=== PATIENT | male | born 1955 | race Caucasian/White ===

== ENCOUNTER 2017-08-12 17:06 | Inpatient (IN) | payer OTHER ==
[~2017-08-12] VITALS: Ht 185.4 cm; Wt 99.1 kg
[~2017-08-12 17:06] MED LIST: ASPI81TA82 PO; LISI-587 PO; RANI150 PO
[2017-08-12 17:07] VITALS: BP 153/98; PULSE 98; RESP 18; TEMP 98.8; O2SAT 100
[2017-08-12] MEDS ORDERED: SODIUM CHLORIDE 0.9% FLUSH 10 ML FLUSH IV FLUSH PRN (17:30)
[2017-08-12] MEDS ORDERED: LORazepam 2 MG/ML VIAL ONE (17:39)
[2017-08-12 17:44] VITALS: BP 157/97; PULSE 87; RESP 14; O2SAT 96
[2017-08-12] MEDS ORDERED: SODIUM CHLOR 0.9% 1000 ML INJ 1,000 ML IV SCH (17:45)
[2017-08-12] MEDS ORDERED: THIAMINE INJ 100 MG in SODIUM CHLORIDE 0.9% INJ 100 ML IV ONE (17:45)
[2017-08-12] MEDS ORDERED: LORazepam 2 MG/ML VIAL IV PUSH ONE ×2 (17:45→18:45)
[2017-08-12 17:49] LABS: AUTOMATED NEUTROPHIL # 3.2 TH/MM3 (1.8-7.7); BASOPHIL % 0.4 % (0.0-2.0); EOSINOPHIL % 0.4 % (0.0-4.0); HEMATOCRIT 43.4 % (39.0-51.0); LYMPH % 33.3 % (9.0-44.0); LYMPHOCYTE # 1.9 TH/MM3 (1.0-4.8); MEAN CELL VOLUME 92.9 FL (80.0-100.0); MEAN CORPUSCULAR HGB CONC 34.5 % (32.0-36.0); MEAN PLATELET VOLUME 8.4 FL (7.0-11.0); MONO % 11.3 % (0.0-8.0); MONOCYTE # 0.7 TH/MM3 (0-0.9); NEUT % 54.6 % (16.0-70.0); PLATELET COUNT 230 TH/MM3 (150-450); RED BLOOD COUNT 4.67 MIL/MM3 (4.50-5.90); WHITE BLOOD COUNT 5.8 TH/MM3 (4.0-11.0)
[2017-08-12 17:57] LABS: INTERNATIONAL NORMALIZED RATIO 1.2 RATIO
[2017-08-12] MEDS ORDERED: LORazepam 1 MG TAB PO PRN (18:00)
[2017-08-12] MEDS ORDERED: FLUMAZENIL 0.5 MG/5 ML VIAL IV PUSH PRN (18:00)
[2017-08-12] MEDS ORDERED: LORazepam 2 MG TAB PO PRN (18:00)
[2017-08-12] MEDS ORDERED: LORazepam 2 MG/ML VIAL IV PUSH PRN ×4 (18:00)
[2017-08-12] MEDS ORDERED: LISI20TA3 PO (18:03)
[2017-08-12] MEDS ORDERED: ASPI-516 CHEW (18:03)
[2017-08-12] MEDS ORDERED: ZANT150T2 PO (18:03)
--- NOTE | 2017-08-12 18:03 | RADRPT ---
EXAM DATE/TIME: 08/12/2017 17:51 [facility] COMPARISON: No previous studies available for comparison. INDICATIONS : Altered mental status. RADIATION DOSE: 44.20 CTDIvol (mGy) MEDICAL HISTORY : Hypertension. SURGICAL HISTORY : Tonsillectomy. Appendectomy. ENCOUNTER: Initial ACUITY: 1 day PAIN SCALE: 0/10 LOCATION: cranial TECHNIQUE: Multiple contiguous axial images were obtained of the head. Using automated exposure control and adj ustment of the mA and/or kV according to patient size, radiation dose was kept as low as reasonably a chievable to obtain optimal diagnostic quality images. DICOM format image data is available electro nically for review and comparison. FINDINGS: CEREBRUM: There is subtle loss of waldrop-white differentiation in the right frontal region. The ventricles are no rmal for age. No evidence of midline shift, mass lesion, or hemorrhage. No extra-axial fluid collect ions are seen. POSTERIOR FOSSA: The cerebellum and brainstem are intact. The 4th ventricle is midline. The cerebellopontine angle i s unremarkable. EXTRACRANIAL: The visualized portion of the orbits is intact. SKULL: The calvaria is intact. No evidence of skull fracture. CONCLUSION: Loss of waldrop matter-white matter differentiation in the right frontal region indicati ng possible acute infarct. No evidence of hemorrhage. Everett Valentine MD on August 12, 2017 at 17:58 Board Certified Radiologist. This report was verified electronically.
[2017-08-12 18:13] LABS: ALBUMIN 4.2 GM/DL (3.4-5.0); ALT (GPT) 56 U/L (12-78); AST (GOT) 39 U/L (15-37); BICARBONATE 21.7 MEQ/L (21.0-32.0); BLOOD UREA NITROGEN 12 MG/DL (7-18); CALCIUM 8.7 MG/DL (8.5-10.1); CHLORIDE 106 MEQ/L (98-107); CREATININE 0.95 MG/DL (0.60-1.30); GLOMERULAR FILTRATION RATE 80 ML/MIN (>89); GLUCOSE,RANDOM 97 MG/DL (74-106); SODIUM (NA) 138 MEQ/L (136-145)
[2017-08-12 18:18] LABS: ALKALINE PHOSPHATASE 70 U/L (45-117); TOTAL BILIRUBIN ADULT 0.6 MG/DL (0.2-1.0); TOTAL PROTEIN 8.1 GM/DL (6.4-8.2); TROPONIN I LESS THAN 0.02 NG/ML (0.02-0.05)
--- NOTE | 2017-08-12 18:23 | PD ---
HPI Chief Complaint: Seizure Time Seen by Provider: 17:41 Travel History International Travel<30 days: No Contact w/Intl Traveler<30days: No Traveled to known affect area: No History of Present Illness HPI 61-year-old male was brought in by friends by private vehicle for seizures. Patient has history of drinking alcohol regularly. Patient states that last drink with this morning. Patient states that he has frequent aura since July 09. Patient states that he was hospitalized last month for seizure in [place].. Patient denies any illicit drug abuse. Patient states that he has not slept for the past 56 hours. Patient states that he had 5 episodes of aura typical of preseizure symptoms today. Patient states that the seizure was generalized tonic-clonic seizure. Patient denies any urinary or bowel incontinence associate with the seizure episode. Patient is on Xanax as needed for the aura. Patient also was given prescription for Seroquel 25 mg nightly for the past month to help him to sleep. Patient was seen by personal physician recently Dr. Herr. patient has elevated liver enzymes recently. Patient denies any history hypertension, diabetes, hyperlipidemia. Patient is a non- smoker. Patient was on a lot of mental stress recently from a broken up relationship. PFSH Past Medical History Cardiovascular Problems: Yes High Cholesterol: Yes Diminished Hearing: No Hypertension: Yes Immunizations Current: No (YES, PNEUMONIA/ NO FLU) Past Surgical History Abdominal Surgery: Yes Appendectomy: Yes Tonsillectomy: Yes (T/A) Other Surgery: Yes (TONSILLECTOMY, APPENDECTOMY) Social History Alcohol Use: Yes (SOCIALLY) Tobacco Use: No Substance Use: No Allergies-Medications (Allergen,Severity, Reaction): Coded Allergies: melon (Unverified Allergy, Severe, Swelling, 08/12/17) Uncoded Allergies: NSAIDS (Allergy, Severe, 07/10/14) Patient states that he had a reaction to naproxen 20 years ago, but has had no reaction since. TUMARIC (Allergy, Severe, Anaphylaxis, 09/13/14) Reported Meds & Prescriptions Reported Meds & Active Scripts Active Reported Ambien (Zolpidem Tartrate) 10 Mg Tab 10 Mg PO HS PRN Xanax (Alprazolam) 0.25 Mg Tab 0.25 Mg PO DAILY PRN Quetiapine (Quetiapine Fumarate) 25 Mg Tab 25 Mg PO DAILY Lipitor (Atorvastatin Calcium) 40 Mg Tab 40 Mg PO HS Hydrochlorothiazide 25 Mg Tab 25 Mg PO DAILY Lisinopril 20 Mg Tab 20 Mg PO DAILY Aspirin 81 Mg Chew 81 Mg CHEW DAILY Review of Systems General / Constitutional: No: Fever Eyes: No: Visual changes HENT: No: Headaches Cardiovascular: No: Chest Pain or Discomfort Respiratory: No: Shortness of Breath Gastrointestinal: No: Abdominal Pain Genitourinary: No: Dysuria Musculoskeletal: No: Pain Skin: No Rash Neurologic: No: Weakness Psychiatric: No: Depression Endocrine: No: Polydipsia Hematologic/Lymphatic: No: Easy Bruising Physical Exam Narrative GENERAL: Well-nourished, well-developed patient. SKIN: Focused skin assessment warm/dry. HEAD: Normocephalic. EYES: No scleral icterus. No injection or drainage. NECK: Supple, trachea midline. No JVD or lymphadenopathy. CARDIOVASCULAR: Regular rate and rhythm without murmurs, gallops, or rubs. RESPIRATORY: Breath sounds equal bilaterally. No accessory muscle use. GASTROINTESTINAL: Abdomen soft, non-tender, nondistended. MUSCULOSKELETAL: No cyanosis, or edema. BACK: Nontender without obvious deformity. No CVA tenderness. Neurologic exam: Patient seems to be manic at this point. Patient moves all extremity well. No obvious focal neurological deficit. Data Data Last Documented VS Vital Signs Date Time Temp Pulse Resp B/P (MAP) Pulse Ox O2 Delivery O2 Flow Rate FiO2 08/12/17 17:44 87 14 157/97 (117) 96 Room Air 08/12/17 17:07 98.8 Orders Orders Electrocardiogram (08/12/17 17:21) Ammonia (08/12/17 17:21) Complete Blood Count With Diff (08/12/17 17:21) Comprehensive Metabolic Panel (08/12/17 17:21) Prothrombin Time / Inr (Pt) (08/12/17 17:21) Act Partial Throm Time (Ptt) (08/12/17 17:21) Troponin I (08/12/17 17:21) Ct Brain W/O Iv Contrast(Rout) (08/12/17 17:21) Blood Glucose (08/12/17 17:21) Ecg Monitoring (08/12/17 17:21) Iv Access Insert/Monitor (08/12/17 17:21) Oximetry (08/12/17 17:21) Sodium Chloride 0.9% Flush (Ns Flush) (08/12/17 17:30) Lorazepam Inj (Ativan Inj) (08/12/17 17:39) Lorazepam Inj (Ativan Inj) (08/12/17 17:45) Sodium Chlor 0.9% 1000 Ml Inj (Ns 1000 M (08/12/17 17:45) Thiamine Inj (Thiamine Inj) (08/12/17 17:45) Mra Brain W/O Contrast (Cow) (08/12/17 17:45) Mra Carotids W Contrast (08/12/17 17:45) Eeg Study (08/12/17 ) Alcohol Withdrawal Asmt-Ciwa ONCE (08/12/17 17:56) Flumazenil Inj (Romazicon Inj) (08/12/17 18:00) Lorazepam Inj (Ativan Inj) (08/12/17 18:00) Lorazepam (Ativan) (08/12/17 18:00) Lorazepam Inj (Ativan Inj) (08/12/17 18:00) Lorazepam Inj (Ativan Inj) (08/12/17 18:00) Lorazepam Inj (Ativan Inj) (08/12/17 18:00) Lorazepam (Ativan) (08/12/17 18:00) Mri Brain W&W/O Contrast (08/12/17 17:42) Admit Order (Ed Use Only) (08/12/17 18:23) Lorazepam Inj (Ativan Inj) (08/12/17 18:45) Alcohol (Ethanol) (08/12/17 17:30) Labs Laboratory Tests Test 08/12/17 17:30 White Blood Count 5.8 TH/MM3 Red Blood Count 4.67 MIL/MM3 Hemoglobin 15.0 GM/DL Hematocrit 43.4 % Mean Corpuscular Volume 92.9 FL Mean Corpuscular Hemoglobin 32.0 PG Mean Corpuscular Hemoglobin Concent 34.5 % Red Cell Distribution Width 13.0 % Platelet Count 230 TH/MM3 Mean Platelet Volume 8.4 FL Neutrophils (%) (Auto) 54.6 % Lymphocytes (%) (Auto) 33.3 % Monocytes (%) (Auto) 11.3 % Eosinophils (%) (Auto) 0.4 % Basophils (%) (Auto) 0.4 % Neutrophils # (Auto) 3.2 TH/MM3 Lymphocytes # (Auto) 1.9 TH/MM3 Monocytes # (Auto) 0.7 TH/MM3 Eosinophils # (Auto) 0.0 TH/MM3 Basophils # (Auto) 0.0 TH/MM3 CBC Comment DIFF FINAL Differential Comment Prothrombin Time 12.0 SEC Prothromb Time International Ratio 1.2 RATIO Activated Partial Thromboplast Time 23.8 SEC Blood Urea Nitrogen 12 MG/DL Creatinine 0.95 MG/DL Random Glucose 97 MG/DL Total Protein 8.1 GM/DL Albumin 4.2 GM/DL Calcium Level 8.7 MG/DL Alkaline Phosphatase 70 U/L Aspartate Amino Transf (AST/SGOT) 39 U/L Alanine Aminotransferase (ALT/SGPT) 56 U/L Total Bilirubin 0.6 MG/DL Sodium Level 138 MEQ/L Potassium Level 3.8 MEQ/L Chloride Level 106 MEQ/L Carbon Dioxide Level 21.7 MEQ/L Anion Gap 10 MEQ/L Estimat Glomerular Filtration Rate 80 ML/MIN Ammonia 23 MCMOL/L Troponin I LESS THAN 0.02 NG/ML Ethyl Alcohol Level 91 MG/DL [facility] Medical Decision Making Medical Screen Exam Complete: Yes Emergency Medical Condition: Yes Interpretation(s) 1945 PM. CBC within normal limits. CMP within normal limits. AST 39. Cardiac enzymes are normal. Ammonia 23. INR 1.2. Differential Diagnosis Differential diagnosis including alcohol withdrawal, hepatic encephalopathy, manic episode, seizure, TIA, CVA, electrolyte imbalance. Narrative Course 61-year-old male anxious, manic, history of alcohol consumption. Patient states that he has aura for the past month and 5 today. Last drink was this morning. Ativan 2 mg IV. CIWA protocol started. Thiamine 100 mg IV. Normal saline solution 125 cc an hour. Neurology consultation initiated. MRI, MRA and EEG ordered. Diagnosis Primary Impression: Seizure Additional Impression: Alcohol dependence Qualified Codes: F10.29 - Alcohol dependence with unspecified alcohol-induced disorder Admitting Information Admitting Physician Requests: Admit Darius Johns MD August 12, 2017 18:23
--- NOTE | 2017-08-12 19:18 | HHI.HP ---
HPI Service [facility] Hospitalists Primary Care Physician Jalen Herr MD Admission Diagnosis Seizure. Alcohol dependence. Chief Complaint: confusion. 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 Pt had been displaying a pressured speech and agitated behavior. Pt says he thinks that a recent break up from his girlfriend of 7 years on "June 25" is believed to be the trigger for his behavior. He was being seen by [facility] psychiatry and given a script for seroquel to help with sleep. Pt says he does drink "2 etoh" drinks on average per day but wouldn't be more specific ...other than to say he had 3 vodka's today. Pt says he was hospitalized in [facility] and had w/up and told he had seizure and it was probably etoh related. Pt has been in [place] visiting family per his hx tonight. Says "3 nights ago" he was in ED at [facility] in [place] and had to see about 5 levels of trainee doctors before seeing the Attending. He believes he had "5 auras today" which he thinks are sz activity. He drank 3 vodkas and got on a plane to [facility] where his friends and colleagues picked him up and brought him here. Apparently he was using some as needed xanax for his symptoms. He has had elevated liver enzymes with most recent LFT's being drawn on 07/18 which I reviewed. A liver bx in 2014 showed fatty liver and some central/portal fibrosis. He has been given multiple doses of ativan in ED already. Also of note we are informed that he may drink at least 6-8 etoh beverages per day. Review of Systems Other confusion and possible sz Past Family Social History Past Medical History htn dupuytren contracture bcc nose. radiation carpal tunnel fatty liver 2015 liver bx. steatohepatitis/portal and central fibrosis hyperlipidemia OA hx basal cell ca skin sleep d/o hx appe. Meckel diverticulum repair tonsil/adenoid recent blood work 07/18/17 psa 0.1, tsh 4.7, protein 7.3, albumen 4.5, t bili 0.8, alk phos 68, ast 308, alt 173 LDL 49, HDL 41, triglycerides 83, wbc 4.6 , hgb 14,platelets 301, na 138,bun 18, cr .9 ca 9.5 Reported Medications asa 81mg daily fish oil 1200mg dialy hctz 25mg daily lisinipril 20mg daily per pt. bid per records mag 500mg daily lipitor 40mg daily quetiapine fumarate 25mg daily Allergies: Coded Allergies: melon (Unverified Allergy, Severe, Swelling, 08/12/17) Uncoded Allergies: NSAIDS (Allergy, Severe, 07/10/14) Patient states that he had a reaction to naproxen 20 years ago, but has had no reaction since. TUMARIC (Allergy, Severe, Anaphylaxis, 09/13/14) Family History pt keeps pointing out bipolar d/o Social History no tob admits to at least "2 etoh drinks per day" says today he had 3 vodka drinks. Physical Exam Vital Signs pressured/manic speech heart reg. no murmer lung cta abd s/nt/bs/nd ext no edema no carotid bruit no asterixis no nuchal rigidity Vital Signs Date Time Temp Pulse Resp B/P (MAP) Pulse Ox O2 Delivery O2 Flow Rate FiO2 08/12/17 17:44 87 14 157/97 (117) 96 Room Air 08/12/17 17:44 96 Room Air 08/12/17 17:07 98.8 98 18 153/98 (116) 100 Laboratory Laboratory Tests Test 08/12/17 17:30 White Blood Count 5.8 Red Blood Count 4.67 Hemoglobin 15.0 Hematocrit 43.4 Mean Corpuscular Volume 92.9 Mean Corpuscular Hemoglobin 32.0 Mean Corpuscular Hemoglobin Concent 34.5 Red Cell Distribution Width 13.0 Platelet Count 230 Mean Platelet Volume 8.4 Neutrophils (%) (Auto) 54.6 Lymphocytes (%) (Auto) 33.3 Monocytes (%) (Auto) 11.3 Eosinophils (%) (Auto) 0.4 Basophils (%) (Auto) 0.4 Neutrophils # (Auto) 3.2 Lymphocytes # (Auto) 1.9 Monocytes # (Auto) 0.7 Eosinophils # (Auto) 0.0 Basophils # (Auto) 0.0 CBC Comment DIFF FINAL Differential Comment Prothrombin Time 12.0 Prothromb Time International Ratio 1.2 Activated Partial Thromboplast Time 23.8 Blood Urea Nitrogen 12 Creatinine 0.95 Random Glucose 97 Total Protein 8.1 Albumin 4.2 Calcium Level 8.7 Alkaline Phosphatase 70 Aspartate Amino Transf (AST/SGOT) 39 Alanine Aminotransferase (ALT/SGPT) 56 Total Bilirubin 0.6 Sodium Level 138 Potassium Level 3.8 Chloride Level 106 Carbon Dioxide Level 21.7 Anion Gap 10 Estimat Glomerular Filtration Rate 80 Ammonia 23 Troponin I LESS THAN 0.02 Result Diagram: 08/12/17172908/12/171729 Caprini VTE Risk Assessment Caprini VTE Risk Assessment: Mod/High Risk (score >= 2) Caprini Risk Assessment Model Point Value = 1 Point Value = 2 Point Value = 3 Point Value = 5 Age 41-60 Minor surgery BMI > 25 kg/m2 Swollen legs Varicose veins or History of unexplained or recurrent spontaneous Oral contraceptives or hormone replacement Sepsis (< 1 month) Serious lung disease, including pneumonia (< 1 month) Abnormal pulmonary function Acute myocardial infarction Congestive heart failure (< 1 month) History of inflammatory bowel disease Medical patient at bed rest Age 61-74 Arthroscopic surgery Major open surgery (> 45 min) Laparoscopic surgery (> 45 min) Malignancy Confined to bed (> 72 hours) Immobilizing plaster cast Central venous access Age >= 75 History of VTE Family history of VTE Factor V Leiden Prothrombin [id number] Lupus anticoagulant Anticardiolipin antibodies Elevated serum homocysteine Heparin-induced thrombocytopenia Other congenital or acquired thrombophilia Stroke (< 1 month) Elective arthroplasty Hip, pelvis, or leg fracture Acute spinal cord injury (< 1 month) Prophylaxis Regimen Total Risk Factor Score Risk Level Prophylaxis Regimen 0-1 Low Early ambulation 2 Moderate Order ONE of the following: *Sequential Compression Device (SCD) *Heparin 5000 units SQ BID 3-4 Higher Order ONE of the following medications: *Heparin 5000 units SQ TID *Enoxaparin/Lovenox 40 mg SQ daily (WT < 150 kg, CrCl > 30 mL/min) *Enoxaparin/Lovenox 30 mg SQ daily (WT < 150 kg, CrCl > 10-29 mL/min) *Enoxaparin/Lovenox 30 mg SQ BID (WT < 150 kg, CrCl > 30 mL/min) AND/OR *Sequential Compression Device (SCD) 5 or more Highest Order ONE of the following medications: *Heparin 5000 units SQ TID (Preferred with Epidurals) *Enoxaparin/Lovenox 40 mg SQ daily (WT < 150 kg, CrCl > 30 mL/min) *Enoxaparin/Lovenox 30 mg SQ daily (WT < 150 kg, CrCl > 10-29 mL/min) *Enoxaparin/Lovenox 30 mg SQ BID (WT < 150 kg, CrCl > 30 mL/min) AND *Sequential Compression Device (SCD) Assessment and Plan Problem List: (1) Alcohol dependence ICD Codes: F10.20 - Alcohol dependence, uncomplicated Status: Acute Plan: 1. Pt brought to ED with severe agitation, pressured speech, flight of ideas, no sleep in 56 hrs and certainly might be experiencing rochelle. He was from his significant other on June 25 which seems to have precipitated his mood d/o. He suffers from etoh dependence and may have had etoh related seizures in the past and possibly earlier today. Pt just flew in from [place] to [facility] and brought to ED by friends. Pt admits to [address] here. he will only admit to 2 etoh drinks on average per day but sources close to him say it could be more like 6-8drinks at least. Pt currently has etoh in his system and is not currenty in etoh w/d and I see no evidence for hepatic encephalopathy. His current sx's seem to be related to his mood d/o, but he is at significant risk for a severe etoh withdrawal while admitted. There is no proof of infection, metabolic d/o, acute cva on basic labwork, ct brain, mri/a brain. he is already given iv ativan in ED. We will admit him to ICU setting for close monitoring and etoh w/d I spoke to Dr Oconnor neurology who will get EEG in AM. IV thiamine and IVF initiated CIWA etoh w/d protocol started. Have ordered schedule long acting benzo librium to prevent etoh w/d prn clonidine for bp ordered Will discuss the situation with his psychiatrist in the morning. Pt was on a low dose seroquel. dvt prophylaxis. Physician Certification 2 Midnight Certification Type: Admission for Inpatient Services Order for Inpatient Services 3The services are ordered in accordance with Medicare regulations or non- Medicare payer requirements, as applicable. In the case of services not specified as inpatient-only, they are appropriately provided as inpatient services in accordance with the 2-midnight benchmark. Estimated LOS (days): 3 3 days is the estimated time the patient will need to remain in the hospital, assuming treatment plan goals are met and no additional complications. Post-Hospital Plan: Home Problem Qualifiers (1) Alcohol dependence: Qualified Codes: F10.29 - Alcohol dependence with unspecified alcohol-induced disorder Steven Torres MD August 12, 2017 19:18
[2017-08-12] MEDS ORDERED: GADODIAMIDE PF 287 MG/ML 20 ML VIAL (for RAD MRI) IVCONTRAST ONE (19:22)
[2017-08-12 19:40] VITALS: BP 117/67; PULSE 69; RESP 20; O2SAT 95
[2017-08-12] MEDS ORDERED: HYDR25TA5 PO (19:42)
[2017-08-12] MEDS ORDERED: AMBI10TA PO (19:42)
[2017-08-12] MEDS ORDERED: LISI-515 PO (19:42)
[2017-08-12] MEDS ORDERED: LIPI40TA PO (19:42)
[2017-08-12] MEDS ORDERED: ALPR.25 PO (19:42)
[2017-08-12] MEDS ORDERED: QUET1TAB7 PO (19:42)
[2017-08-12] MEDS ORDERED: cloNIDine HCL 0.1 MG TAB PO PRN (19:45)
--- NOTE | 2017-08-12 19:53 | RADRPT ---
EXAM DATE/TIME: 08/12/2017 18:00 [place] Corrected on: August 13, 2017; [facility] COMPARISON: CT BRAIN W/O CONTRAST, August 12, 2017, 17:51. INDICATIONS : Seizures. CONTRAST: 20 cc Omniscan (gadodiamide) IV MEDICAL HISTORY : Carcinoma, basal cell. Hypertension. Hypercholesterolemia. SURGICAL HISTORY : Tonsillectomy. Appendectomy. ENCOUNTER: Initial ACUITY: 1 day PAIN SCORE: 0/10 LOCATION: cranial TECHNIQUE: Multiplanar, multisequence MRI of the brain was performed both prior to and following the administrat ion of paramagnetic contrast. FINDINGS: CEREBRUM: The ventricles are normal for age. No evidence of midline shift, mass lesion, hemorrhage or acute in farction. No extraaxial fluid collections are seen. The pituitary gland and suprasellar cistern are normal in configuration. WHITE MATTER: Very minimal scattered periventricular and subcortical white matter small vessel ischemic changes are noted. POSTERIOR FOSSA: The cerebellum and brainstem are intact. The 4th ventricle is midline. The cerebellopontine angle is unremarkable. The cerebellar tonsils are normal in position. DIFFUSION IMAGING: No focal areas of restricted diffusion are seen. No evidence of acute infarction. EXTRACRANIAL: The visualized portions of the orbits and paranasal sinuses are unremarkable. POST-CONTRAST: No abnormal areas of parenchymal or dural enhancement. No evidence of blood-brain barrier breakdown. CONCLUSION: 1. Very minimal scattered periventricular and subcortical white matter small vessel ischemic changes. 2. No acute infarct or acute hemorrhage, midline shift, extra-axial fluid collection or abnormal enha ncing mass lesion. Eliezer Navarro MD on August 12, 2017 at 19:47 on August 13, 2017 at 10:31 Board Certified Radiologist. This report was verified electronically.
--- NOTE | 2017-08-12 19:56 | RADRPT ---
EXAM DATE/TIME: 08/12/2017 18:00 [facility] COMPARISON: No previous studies available for comparison. INDICATIONS : Seizures. MEDICAL HISTORY : Carcinoma, basal cell. Hypertension. Hypertension. SURGICAL HISTORY : Tonsillectomy. Appendectomy. ENCOUNTER: Initial ACUITY: 1 day PAIN SCORE: 0/10 LOCATION: cranial Please note a normal MRA of the brain does not entirely exclude the possibility of a small aneurysm, nor the possibility of distal intracranial vessel disease. TECHNIQUE: 3D time of flight MRA was performed. Source images, multiplanar STS MIP, and 3D volume MIP reconstru ctions were reviewed. FINDINGS: There is excellent visualization of the major intracranial arteries out to the second-order branch ve ssels. There is no evidence for aneurysm, vessel truncation or stenosis, and no evidence for vascula r malformation. There are patent bilateral posterior communicating arteries. CONCLUSION: 1. Patent bilateral posterior communicating arteries. 2. No significant stenosis, occlusion or aneurysm formation. Eliezer Navarro MD on August 12, 2017 at 19:53 Board Certified Radiologist. This report was verified electronically.
--- NOTE | 2017-08-12 20:01 | RADRPT ---
EXAM DATE/TIME: 08/12/2017 18:00 [facility] COMPARISON: No previous studies available for comparison. INDICATIONS : Seizures. CONTRAST: 20 cc Omniscan (gadodiamide) IV MEDICAL HISTORY : Carcinoma, basal cell. Hypertension. Hypercholesterolemia. SURGICAL HISTORY : Tonsillectomy. Appendectomy. ENCOUNTER: Initial ACUITY: 1 day PAIN SCORE: 0/10 LOCATION: cranial Percent stenosis is calculated using the diameter of the stenotic region over the diameter of the nor mal distal internal carotid artery. TECHNIQUE: Bolus infused MRA of the extracranial circulation was performed using a neurovascular coil. Post pro cessing was performed including rotating subvolume maximum intensity projections of each carotid vivek ry, rotating full volume maximum intensity projections of both carotid arteries, sagittal and coronal sliding thin slab reformations of each carotid artery, and left oblique sliding thin slab reformatio n through the aortic arch to include the origin of the arch branch vessels. FINDINGS: AORTIC ARCH: The great vessels are patent at their origins. No evidence of ostial narrowing. RIGHT CAROTID: The common carotid artery is intact. The carotid bulb has a normal configuration without ulceration or narrowing. Minimal focal stenosis is noted involving the right proximal internal carotid artery. M oderate focal stenosis is noted involving the right external carotid artery. LEFT CAROTID: The common carotid artery is intact. The carotid bulb has a normal configuration without ulceration or narrowing. The internal carotid artery lumen is smooth without stenosis. The external carotid ar jesenia is intact. VERTEBRALS: The vertebral arteries have a symmetric diameter. No stenotic lesions are seen. CONCLUSION: 1. Minimal focal stenosis involving the right proximal internal carotid artery. 2. Moderate focal stenosis involving the right proximal external carotid artery. 3. No significant stenosis or occlusion of the left carotid system. Eliezer Navarro MD on August 12, 2017 at 19:54 Board Certified Radiologist. This report was verified electronically.
[2017-08-12 20:22] LABS: BILIRUBIN, URINE NEG (NEG); BLOOD, URINE NEG (NEG); GLUCOSE,URINE NEG (NEG); KETONE, URINE NEG (NEG); NITRITE,URINE NEG (NEG); PH, URINE 6.5 (5.0-8.5); URINE COLOR LIGHT-YELLOW (YELLW/STRAW); URINE LEUKOCYTE ESTERASE NEG (NEG)
[2017-08-12] MEDS: levETIRAcetam 500 MG TAB PO SCH (22:12)
[2017-08-12] MEDS: ATORVASTATIN 40 MG TAB PO SCH (22:13)
[2017-08-12] MEDS: SODIUM CHLOR 0.9% 1000 ML INJ 1,000 ML IV SCH (22:14)
[2017-08-13] VITALS (12 sets, daily range): BP systolic 118–156; BP diastolic 48–102; PULSE 7–83; RESP 16–27; TEMP 97.7–98.9; O2SAT 97–98
[2017-08-13] MEDS ORDERED: chlordiazePOXIDE 25 MG CAP PO SCH
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
[2017-08-13] MEDS: chlordiazePOXIDE 25 MG CAP PO SCH ×3 (05:36→17:46)
[2017-08-13] MEDS: ASPIRIN 81 MG CHEW TAB CHEW SCH (08:31)
[2017-08-13] MEDS: levETIRAcetam 500 MG TAB PO SCH ×2 (08:31→20:19)
[2017-08-13] MEDS: LISINOPRIL 20 MG TAB PO SCH (08:31)
[2017-08-13] MEDS: MULTIVITAMIN TAB PO SCH (08:31)
[2017-08-13] MEDS ORDERED: HYDROCHLOROTHIAZIDE 25 MG TAB PO SCH (09:00)
[2017-08-13] MEDS: SODIUM CHLOR 0.9% 1000 ML INJ 1,000 ML IV SCH ×2 (09:27→22:55)
[2017-08-13] MEDS: THIAMINE INJ 100 MG in SODIUM CHLORIDE 0.9% INJ 100 ML IV SCH (09:27)
--- NOTE | 2017-08-13 10:31 | HHI.PR ---
Subjective Remarks Pt very verbose. Difficult to interrupt. Pt pleasant but grandiose at times. Objective Vitals Vital Signs Date Time Temp Pulse Resp B/P (MAP) Pulse Ox O2 Delivery O2 Flow Rate FiO2 08/13/17 10:00 83 08/13/17 08:00 97.7 63 27 152/48 (82) 98 08/13/17 08:00 63 08/13/17 07:00 Room Air 99 08/13/17 06:00 Room Air 99 08/13/17 06:00 66 08/13/17 05:00 98.9 60 22 138/91 (107) 98 08/13/17 04:56 08/13/17 03:23 67 16 118/65 (82) 97 Room Air 08/12/17 19:40 69 20 117/67 (84) 95 Room Air 08/12/17 17:44 87 14 157/97 (117) 96 Room Air 08/12/17 17:44 96 Room Air 08/12/17 17:07 98.8 98 18 153/98 (116) 100 Result Diagram: 08/12/17172908/12/171729 Imaging Last Impressions Neck Magnetic Resonance Angiography 08/12/171744 Signed Impressions: Service Date/Time: Saturday, August 12, 2017 18:00 - CONCLUSION: 1. Minimal focal stenosis involving the right proximal internal carotid artery. 2. Moderate focal stenosis involving the right proximal external carotid artery. 3. No significant stenosis or occlusion of the left carotid system. Eliezer Navarro MD Head Magnetic Resonance Angiography 08/12/171744 Signed Impressions: Service Date/Time: Saturday, August 12, 2017 18:00 - CONCLUSION: 1. Patent bilateral posterior communicating arteries. 2. No significant stenosis, occlusion or aneurysm formation. Eliezer Navarro MD Brain MRI 08/12/17 174 Signed Impressions: Service Date/Time: Saturday, August 12, 2017 18:00 - CONCLUSION: 1. Very minimal scattered periventricular and subcortical white matter small vessel ischemic changes. 2. No acute infarct or acute hemorrhage, midline shift, extra-axial fluid collection or abnormal enhancing mass lesion. Eliezer Navarro MD Head CT 08/12/17 1721 Signed Impressions: Service Date/Time: Saturday, August 12, 2017 17:51 - CONCLUSION: Loss of waldrop matter-white matter differentiation in the right frontal region indicating possible acute infarct. No evidence of hemorrhage. Everett Valentine MD Objective Remarks GENERAL: This is a well-nourished, well-developed patient, in no apparent distress. CARDIOVASCULAR: Regular rate and rhythm without murmurs, gallops, or rubs. RESPIRATORY: Clear to auscultation. Breath sounds equal bilaterally. No wheezes , rales, or rhonchi. GASTROINTESTINAL: Abdomen soft, non-tender, nondistended. Normal active bowel sounds MUSCULOSKELETAL: Extremities without clubbing, cyanosis, or edema. NEURO: Alert & Oriented x4 to person, place, time, situation. Moves all ext x4 A/P Problem List: (1) Alcohol dependence ICD Codes: F10.20 - Alcohol dependence, uncomplicated Status: Acute Plan: - Pt brought to ED with severe agitation, pressured speech, flight of ideas, no sleep in 56 hrs and certainly might be experiencing rochelle. - Pt was from his significant other on June 25 which seems to have precipitated his mood d/o. - Pt suffers from etoh dependence and may have had etoh related seizures in the past and possibly the day prior to admission. - Pt flew in from [place] to [facility] and brought to ED by friends. Pt admits to [address] here[address] - Pt will only admit to 2 etoh drinks on average per day but sources close to him say it could be more like 6-8drinks at least. - Pt currently has etoh in his system and is not currenty in etoh w/d and I see no evidence for hepatic encephalopathy. His current sx's seem to be related to his mood d/o, but he is at significant - MRI brain (08/13/17) --> No acute findings - MRA brain (08/13/17) --> NO acute findings - MRA neck (08/13/17) --> no hemodynamically significant stenosis - EEG (08/13/17) --> NO seizure activity - TSH, B12 --> WNL - RPR --> Non-reactive - Pt likely has both etoh dependence and Bipolar Disorder. Currently manic. - Case reviewed with pt's outpatient Psychiatrist, Dr. Gautam (08/14/17) - Case reviewed with Neurology, Dr. Oconnor, (08/14/17). - continue scheduled librium - ativan per [facility] protocol - thiamin, folate, MVI - DVT prophylaxis - supportive care Problem Qualifiers (1) Alcohol dependence: Qualified Codes: F10.29 - Alcohol dependence with unspecified alcohol-induced disorder Tito Dunn DO August 13, 2017 10:31
--- NOTE | 2017-08-13 10:34 | EKG ---
Date Performed: 08/12/2017 Time Performed: 17:44:39 PTAGE: 61 years EKG: Sinus rhythm NORMAL ECG NO PREVIOUS TRACING DOCTOR: Dick Youssef Interpretating Date/Time 08/13/2017 10:32:12
--- NOTE | 2017-08-13 11:12 | MG ---
cc: Sonam Stanley MD EEG NUMBER: [id number] REFERRING PHYSICIAN: Dr. Oconnor. Room 1325 with hyperventilation, photic stimulation. Good ventilatory effort. EEG is done awake, drowsy and sleep. Admitted for possible seizure, possible alcohol withdrawal. Last ETOH level of 91. Some frequent auras since July. Not slept in 56 hours and had a generalized tonic-clonic seizure. He has a known history of hyperlipidemia, hypertension, head trauma, elevated liver enzymes, ethanol use. Currently on aspirin, lisinopril, thiamine, Theragran, vitamins. DESCRIPTION OF RECORD: The patient exhibits an alpha rhythm of 10-1/2 to 11, 20-50 microvolts. Overall, symmetrical background. Some minor myogenic artifact noted. Photic stimulation is done at the beginning within normal driving response. Hyperventilation performed towards the end of the recording with some myogenic artifact, but overall symmetrical background. Tends to fall asleep. There is some snoring artifact noted. No epileptiform features noted. IMPRESSION: Overall, normal appearing EEG without any epileptiform features. Clinical correlation. Sonam Stanley MD DF/TL , 10:58 AM , 11:11 AM
--- NOTE | 2017-08-13 16:55 | PD.PSY.CON ---
Provisional Diagnosis Admission Date August 12, 2017 at 19:04 Fence I. 1. Rochelle, mild-moderate Rule-out BPAD, manic Rule-out substance related mood disorder Rule-out adjustment reaction 2. Rule-out Alcohol use disorder Fence II. Deferred History of Present Illness Service Psychiatry Consult Requested By Dr. Dunn Reason for Consult Psychiatric evaluation Primary Care Physician Jalen Herr MD HPI Nicci Oswaldo is a 61-year-old male with a reported history of alcohol use and "incredible stress" who was brought to the ED by friends out of concern for possible seizure. [place] last month and was having aura concerning for impending spell prior to admission here. He has been admitted to the medical floor for further evaluation of this issue. Dr. Dunn has requested that I see the patient in consultation for psychiatric evaluation with concern in particular for possible mood instability/ rochelle. Reviewing the electronic medical record, I see no previous psychiatric contact within our system. Patient seen and examined. Chart reviewed. Case discussed with Dr. Dunn. On my examination today, patient presents as hyperverbal and circumstantial with mild loosening of associations. He is difficult to interrupt, and when I endeavor to redirect him he visibly stiffens with irritation and says that he would address the question I was asking if I would let him finish his narrative. He is fairly distractible, for example losing his train of thought when he sees a cardinal outside the window behind me. His affect is somewhat expansive, and he presents as generally affable and gregarious. He does admit to recent sleep difficulty prior to admission but says that he slept very well overnight last night. He denies impulsive or reckless decision-making. He does note that he sold some property recently but did so for a tidy profit. He denies hallucinations. I can elicit no delusional material except that the patient does say that he did feel prior to admission that he could "predict what others were going to say" and notes that he had what seemed like a "pre- rehearsed conversation" with his former fiancee. His recent separation from his fiancee, whom he knew for 7 years, is a significant proximate stressor. I can elicit no depressive symptoms. He does not complain of significant anxiety presently. The remainder of the psychiatric ROS is negative, and the patient has no acute physical complaints. Past psychiatric history: The patient has followed with Dr. Gautam for outpatient psychiatric care at intervals since 1990. He most recently was prescribed a low dose of Seroquel 12.5-25mg and has also taken Xanax and SSRIs in the past. He denies a history of psychiatric admissions or suicide attempts. Family history: Patient reports that his son struggles with alcohol use issues. He reports that his uncles and great-uncles had some degree of mood instability and were "hypomanic" at times. He does not report a family history of suicide. Social history: Patient is from [place]. His father was an store administrator, a process planner. 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 He is . He has 4 children: 3 daughters and 1 son. All of his children are reportedly high achieving in their curran, although his son does struggle with alcohol use issues as noted above. 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 He enjoys dianne diving. 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 He notes that he keeps "weapons everywhere" at home for protection. With the patient's permission, I have spoken with Dr. Gautam over the phone. Dr. Gautam notes that he has primarily treated the patient for adjustment reactions in the past, and their clinical contact has been intermittent. He began seeing patient again in the clinic within the last month or so and resumed the low dose of Seroquel that had previously been efficacious for the patient. He last saw the patient in the clinic 2 weeks ago but interacted with the patient in the community just before admission and notes that patient's behavior presently is markedly different from his chronic baseline. Dr. Gautam supports titration of patient's Seroquel for mood stabilization. I did request that the patient provide other sources of collateral information to provide a broader picture of patient's case, but the patient does not provide consent for this. Review of Systems Except as stated in HPI: all other systems reviewed are Neg Past Family Social History Coded Allergies: melon (Unverified Allergy, Severe, Swelling, 08/12/17) Uncoded Allergies: NSAIDS (Allergy, Severe, 07/10/14) Patient states that he had a reaction to naproxen 20 years ago, but has had no reaction since. TUMARIC (Allergy, Severe, Anaphylaxis, 09/13/14) Past Medical History Includes a history of Dupuytren's contracture, possible seizures. See EMR. Reported Medications Zolpidem (Ambien) 10 Mg Tab, 10 MG PO HS Y for INSOMNIA, TAB 0 Refills 08/12/17 Alprazolam (Xanax) 0.25 Mg Tab, 0.25 MG PO DAILY Y for anxiety, TAB 0 Refills 08/12/17 Quetiapine (Quetiapine) 25 Mg Tab, 25 MG PO DAILY, #30 TAB 0 Refills 08/12/17 Atorvastatin (Lipitor) 40 Mg Tab, 40 MG PO HS for Cholesterol Management, #30 TAB 0 Refills 08/12/17 Hydrochlorothiazide (Hydrochlorothiazide) 25 Mg Tab, 25 MG PO DAILY, #30 TAB 0 Refills 08/12/17 Lisinopril (Lisinopril) 20 Mg Tab, 20 MG PO DAILY, #30 TAB 0 Refills 08/12/17 Aspirin (Aspirin) 81 Mg Chew, 81 MG CHEW DAILY, TAB 0 Refills 08/12/17 Current Medications Medications (Trade) Dose Ordered Sig/Glenny Route Start Time Stop Time Status Last Admin (NS Flush) 2 ml UNSCH PRN IV FLUSH 08/12/17 17:30 08/12/17 17:48 (Romazicon Inj) 0.2 mg Q1M PRN IV PUSH 08/12/17 18:00 (Ativan) 1 mg Q4H PRN PO 08/12/17 18:00 (Ativan Inj) 1 mg Q4H PRN IV PUSH 08/12/17 18:00 (Ativan) 2 mg Q2H PRN PO 08/12/17 18:00 (Ativan Inj) 2 mg Q2H PRN IV PUSH 08/12/17 18:00 (Ativan Inj) 2 mg Q1H PRN IV PUSH 08/12/17 18:00 (Ativan Inj) 2 mg Q15M PRN IV PUSH 08/12/17 18:00 (Aspirin Chew) 81 mg DAILY CHEW 08/13/17 09:00 08/13/17 08:31 (Lipitor) 40 mg HS PO 08/12/17 21:00 08/12/17 22:13 (Prinivil) 20 mg DAILY PO 08/13/17 09:00 08/13/17 08:31 (Catapres) 0.1 mg Q4H PRN PO 08/12/17 19:45 Sodium Chloride 1,000 ml @ 75 mls/hr [id number] IV 08/12/17 20:15 08/12/17 22:14 (Librium) 25 mg Q6HR PO 08/13/17 06:00 08/13/17 12:05 (Keppra) 500 mg Q12HR PO 08/12/17 21:15 08/13/17 08:31 Thiamine HCl 100 mg/Sodium Chloride 101 ml @ 101 mls/hr DAILY IV 08/13/17 09:00 08/14/17 09:00 08/13/17 09:27 (Theragran) 1 tab DAILY PO 08/13/17 09:00 08/13/17 08:31 Patient's Strengths (min. 2) Intelligent. Attending to basic needs. Physical Exam Physical exam completed by primary team. On my examination today, the patient appears to be in no acute physical distress. He has a mild resting tremor but no diaphoresis, no mydriasis, no other signs of GABAergic withdrawal. No other motor abnormalities noted. Laboratories and vital signs reviewed: Vital Signs Vital Signs Date Time Temp Pulse Resp B/P (MAP) Pulse Ox O2 Delivery O2 Flow Rate FiO2 08/13/17 14:45 75 08/13/17 12:27 98.0 22 140/81 (100) 98 08/13/17 07:00 Room Air 99 I/O 08/13/17 08/13/17 08/14/17 08:00 16:00 00:00 Intake Total 1000 ml Output Total 0 ml Balance 1000 ml Lab Results Item Value Date Time White Blood Count 5.8 TH/MM3 08/12/17 1730 Hemoglobin 15.0 GM/DL 08/12/17 1730 Platelet Count 230 TH/MM3 08/12/17 1730 Sodium Level 138 MEQ/L 08/12/17 1730 Potassium Level 3.8 MEQ/L 08/12/17 1730 Chloride Level 106 MEQ/L 08/12/17 1730 Carbon Dioxide Level 21.7 MEQ/L 08/12/17 1730 Blood Urea Nitrogen 12 MG/DL 08/12/17 1730 Creatinine 0.95 MG/DL 08/12/17 1730 Estimat Glomerular Filtration Rate 80 ML/MIN L 08/12/17 1730 Aspartate Amino Transf (AST/SGOT) 39 U/L H 08/12/17 1730 Alanine Aminotransferase (ALT/SGPT) 56 U/L 08/12/17 1730 Alkaline Phosphatase 70 U/L 08/12/17 1730 Ammonia 23 MCMOL/L 08/12/17 1730 Urine Opiates Screen NEG 08/12/171999 Urine Amphetamines Screen NEG 08/12/171999 Urine Barbiturates Screen NEG 08/12/171999 Urine Benzodiazepines Screen NEG 08/12/171999 Urine Cocaine Screen NEG 08/12/171999 Urine Cannabinoids Screen NEG 08/12/171999 Ethyl Alcohol Level 91 MG/DL H 08/12/17 1730 UA reviewed. Last Impressions Neck Magnetic Resonance Angiography 08/12/171744 Signed Impressions: Service Date/Time: Saturday, August 12, 2017 18:00 - CONCLUSION: 1. Minimal focal stenosis involving the right proximal internal carotid artery. 2. Moderate focal stenosis involving the right proximal external carotid artery. 3. No significant stenosis or occlusion of the left carotid system. Eliezer Navarro MD Head Magnetic Resonance Angiography 08/12/171744 Signed Impressions: Service Date/Time: Saturday, August 12, 2017 18:00 - CONCLUSION: 1. Patent bilateral posterior communicating arteries. 2. No significant stenosis, occlusion or aneurysm formation. Eliezer Navarro MD Brain MRI 08/12/171741 Signed Impressions: Service Date/Time: Saturday, August 12, 2017 18:00 - CONCLUSION: 1. Very minimal scattered periventricular and subcortical white matter small vessel ischemic changes. 2. No acute infarct or acute hemorrhage, midline shift, extra-axial fluid collection or abnormal enhancing mass lesion. Eliezer Navarro MD Head CT 08/12/17 172 Signed Impressions: Service Date/Time: Saturday, August 12, 2017 17:51 - CONCLUSION: Loss of waldrop matter-white matter differentiation in the right frontal region indicating possible acute infarct. No evidence of hemorrhage. Everett Valentine MD EEG prelim read normal. EKG sinus rhythm QTc not prolonged. Mental Status Examination Appearance: Appropriate Consciousness: Alert Orientation: x4 Motor Activity: Other (Motor exam as above) Speech: Pressured Language: Adequate Fund of Knowledge: Adequate Attention and Concentration: Easily Distracted Memory: Unremarkable Mood: Appropriate Affect: Other (somewhat expansive, slight irritable edge at times) Thought Process & Associations: Loose associations (mild), Circumstantial Thought Content: Appropriate Hallucination Type: None Delusion Type: None (but see above re: predicting what others are going to say) Suicidal Ideation: No Suicidal Plan: No Suicidal Intention: No Homicidal Ideation: No Homicidal Plan: No Homicidal Intention: No Mental Status Exam Remarks Insight and judgment are presently unclear. MOCA 29/30 with 1 point lost for delayed recall. Assessment & Plan Problem List: (1) Rochelle ICD Codes: F30.9 - Manic episode, unspecified Assessment & Plan This is a 61-year-old male above presently admitted to the medical floor for management of spell, possible seizure. Psychiatry is consulted for psychiatric assessment. On my exam, the patient presents with somewhat expansive affect, pressured and difficult to interrupt speech, some loosening of associations, distractibility. He reports recent sleep difficulty and describes a recent sensation that he could predict what others were saying. Collateral from outpatient psychiatrist indicates that patient's current presentation represents a significant discontinuity from his historical baseline. The form of patient's illness is most consistent with rochelle, perhaps of mild- moderate severity. Differential diagnosis would include: BPAD manic, substance- related mood disorder, adjustment reaction or perhaps mood disorder due to a GMC. A fairly extensive medical and neurological workup has been undertaken, to which I would add a TSH, B12/folate, RPR and HIV. If patient's symptoms are substance-related, then they likely will improve as time from last use increases , and I have recommended abstinence from substances of abuse going forward. I have recommended titration of patient's Seroquel to a dose adequate for mood stabilization, and endeavored to review the R/B/A with him. We did discuss lithium and valproate as possible alternative options in his case. Patient was initially resistant to any medication change at the time of my evaluation, but Dr. Gautam has communicated with the patient and has related to me that patient is willing to accept a dose titration of the Seroquel. I would recommend titration to 50mg qHS with subsequent dose adjustments by 25-50mg/day if well tolerated until the dose is in the therapeutic dosage range. There is no evidence of imminent risk of harm to self/others or self-care deficit at present to support initiation of [place] Act. Patient might benefit from voluntary psychiatric hospitalization for acute stabilization if he were willing, and I did try to enter into discussion about this option today with patient without much success. I will revisit this in follow up. 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 I would not support him practicing in his present state. I will plan to follow up tomorrow. Thank you for this consultation. I spent ~60min at the bedside interviewing patient, ~20min in telephone consultation with Dr. Gautam, ~10min discussing case with Dr. Dunn and additional time reviewing patient's chart. Dick Almonte MD August 13, 2017 16:55
--- NOTE | 2017-08-13 18:23 | HHI.PR ---
Review/Management Diagnosis SZ--stable, continue keppra Plan continue keppra continue current therapy for anxiety. monitor for possible withdrawal Diagnosis/Plan: Subjective Subjective Comments No acute events reported tolerating keppra and seroquel well NO sz Active Medications Current Medications Medications (Trade) Dose Ordered Sig/Glenny Route Start Time Stop Time Status Last Admin (NS Flush) 2 ml UNSCH PRN IV FLUSH 08/12/17 17:30 08/12/17 17:48 (Romazicon Inj) 0.2 mg Q1M PRN IV PUSH 08/12/17 18:00 (Ativan) 1 mg Q4H PRN PO 08/12/17 18:00 (Ativan Inj) 1 mg Q4H PRN IV PUSH 08/12/17 18:00 (Ativan) 2 mg Q2H PRN PO 08/12/17 18:00 (Ativan Inj) 2 mg Q2H PRN IV PUSH 08/12/17 18:00 (Ativan Inj) 2 mg Q1H PRN IV PUSH 08/12/17 18:00 (Ativan Inj) 2 mg Q15M PRN IV PUSH 08/12/17 18:00 (Aspirin Chew) 81 mg DAILY CHEW 08/13/17 09:00 08/13/17 08:31 (Lipitor) 40 mg HS PO 08/12/17 21:00 08/12/17 22:13 (Prinivil) 20 mg DAILY PO 08/13/17 09:00 08/13/17 08:31 (Catapres) 0.1 mg Q4H PRN PO 08/12/17 19:45 Sodium Chloride 1,000 ml @ 75 mls/hr [id number] IV 08/12/17 20:15 08/12/17 22:14 (Librium) 25 mg Q6HR PO 08/13/17 06:00 08/13/17 17:46 (Keppra) 500 mg Q12HR PO 08/12/17 21:15 08/13/17 08:31 Thiamine HCl 100 mg/Sodium Chloride 101 ml @ 101 mls/hr DAILY IV 08/13/17 09:00 08/14/17 09:00 08/13/17 09:27 (Theragran) 1 tab DAILY PO 08/13/17 09:00 08/13/17 08:31 (SEROquel) 50 mg HS PO 08/13/17 21:00 Allergies Allergies Coded Allergies melon (Unverified Allergy, Severe, Swelling, 08/12/17) Uncoded Allergies NSAIDS ( Allergy, Severe, 07/10/14) TUMARIC ( Allergy, Severe, Anaphylaxis, 09/13/14) Exam I&O / VS 08/13/17 08/13/17 08/14/17 15:00 23:00 07:00 Intake Total 780 ml Balance 780 ml Intake Oral 680 ml IV Total 100 ml # Voids 3 Vital Signs Date Time Temp Pulse Resp B/P (MAP) Pulse Ox O2 Delivery O2 Flow Rate FiO2 08/13/17 18:09 77 08/13/17 17:25 7 08/13/17 16:00 97.8 72 22 127/68 (87) 98 08/13/17 14:45 75 08/13/17 12:27 98.0 74 22 140/81 (100) 98 08/13/17 12:00 72 08/13/17 10:00 83 08/13/17 08:00 97.7 63 27 152/48 (82) 98 08/13/17 08:00 63 08/13/17 07:00 Room Air 99 08/13/17 06:00 Room Air 99 08/13/17 06:00 66 08/13/17 05:00 98.9 60 22 138/91 (107) 98 08/13/17 04:56 08/13/17 03:23 67 16 118/65 (82) 97 Room Air 08/12/17 19:40 69 20 117/67 (84) 95 Room Air Exam Comments alert, speech normal and appropriate no focal motor deficits Objective Micro and Labs Laboratory Tests Test 08/12/17 20:00 08/13/17 06:00 08/13/17 17:20 Urine Color LIGHT-YELLOW Urine Turbidity CLEAR Urine pH 6.5 Urine Specific [place] 1.007 Urine Protein NEG Urine Glucose (UA) NEG Urine Ketones NEG Urine Occult Blood NEG Urine Nitrite NEG Urine Bilirubin NEG Urine Urobilinogen LESS THAN 2.0 Urine Leukocyte Esterase NEG Microscopic Urinalysis Comment CULT NOT INDICATED Urine Opiates Screen NEG Urine Barbiturates Screen NEG Urine Amphetamines Screen NEG Urine Benzodiazepines Screen NEG Urine Cocaine Screen NEG Urine Cannabinoids Screen NEG Nasal Screen MRSA (PCR) MRSA NOT DETECTED Diagnostic Tests EEG--normal Chas Oconnor MD PhD August 13, 2017 18:23
[2017-08-13 18:25] LABS: FOLATE 18.6 NG/ML (3.1-17.5)
[2017-08-13] MEDS: ATORVASTATIN 40 MG TAB PO SCH (20:18)
[2017-08-13] MEDS ORDERED: QUEtiapine FUMARATE 25 MG TAB PO SCH (21:00)
[2017-08-14] VITALS: BP 117/69; PULSE 66; RESP 18; TEMP 97.5; O2SAT 96
[2017-08-14] MEDS: chlordiazePOXIDE 25 MG CAP PO SCH ×4 (00:01→19:40)
[2017-08-14 05:00] VITALS: BP 127/74; PULSE 77; RESP 18; TEMP 97.4; O2SAT 100
[2017-08-14 08:00] VITALS: BP 128/90; PULSE 62; RESP 18; TEMP 97.6; O2SAT 98
--- NOTE | 2017-08-14 08:26 | HHI.PYPN ---
Subjective Remarks Patient seen and examined. Chart reviewed. Case d/w RN. No behavioral issues ON. Speech less pressured today. Thought process with ongoing loosening of associations but somewhat improved with addition of Seroquel. Slept ok overnight but awoke early, ~4am. Affect less expansive and less irritable. No SI/HI voiced. No psychotic symptoms. Tolerated Seroquel at HS well but did experience mild lightheadedness on arising to go to bathroom. No other reported medication side effects. No physical complaints. Mental Status Examination Appearance: Appropriate Consciousness: Alert Orientation: x4 Motor Activity: Other (No hand tremor, no cog-wheeling, no hypomimia, no dystonias or dyskinesias noted. No signs of GABAergic withdrawal noted.) Speech: Other (Less pressured today.) Language: Adequate Fund of Knowledge: Adequate Attention and Concentration: Easily Distracted (more focused today.) Memory: Unremarkable Mood: Appropriate Affect: Other (Less expansive, less irritable today) Thought Process & Associations: Loose associations (mild), Circumstantial Thought Content: Appropriate Hallucination Type: None Delusion Type: None Suicidal Ideation: No Homicidal Ideation: No Mental Status Exam Remarks I/J improving. Results Labs Test 08/13/17 17:20 Vitamin B12 Level 315 PG/ML Folate 18.6 NG/ML Thyroid Stimulating Hormone 3rd Gen 2.770 uIU/ML HIV (1&2) Ab and P24 Ag, 4th Gener NONREACTIVE Labs reviewed. Additionally, RPR was non-reactive. Vitals/IOs Vital Signs Date Time Temp Pulse Resp B/P (MAP) Pulse Ox O2 Delivery O2 Flow Rate FiO2 08/14/17 05:00 97.4 77 18 127/74 (91) 100 08/13/17 21:45 Room Air 08/13/17 07:00 99 Assessment & Plan Problem List: (1) Mervat ICD Codes: F30.9 - Manic episode, unspecified Status: Acute (2) Alcohol use ICD Codes: Z78.9 - Other specified health status Assessment & Plan Extensive d/w patient regarding pharmacotherapeutic options for management of manic state including but not limited to Seroquel monotherapy, monotherapy with different agent (such as Li, VPA), combined treatment with antipsychotic + mood stabilizer. We also discuss ECT as an option. We agree to proceed with Seroquel monotherapy for now. I have reviewed R/B/A for this medication including but not limited to metabolic effects, motor side effects, potential to lower seizure threshold. Titrate Seroquel to 25mg qAM/75mg qHS for further mood stabilization with plans for ongoing titration to effect and as tolerated. Check orthostatics. Fall precautions. Consider tapering Librium dose by ~25% /day to discontinuation, continuing CIWA with Ativan for any breakthrough withdrawal. Patient is agreeable to voluntary psychiatric hospitalization once medically cleared. We discussed that the unit will be locked, and I have reviewed the conditions of voluntary status including right of release. I did offer to refer the patient to a dual diagnosis unit as he identifies his alcohol use as problematic, but he prefers instead to pursue acute psychiatric stabilization on the inpatient unit here with plan for chem dep rehab afterward. I will follow up tomorrow. Case d/w RN and with Dr. Dunn by phone. A total of ~35 minutes was spent at the bedside with additional time being spent reviewing chart and in coordination of care. Justification for Cont. Inpt. Per primary team. Discharge Planning Plan for voluntary psychiatric hospitalization following medical clearance. Dick Almonte MD August 14, 2017 08:26
[2017-08-14] MEDS: levETIRAcetam 500 MG TAB PO SCH ×2 (08:40→22:01)
[2017-08-14] MEDS: ASPIRIN 81 MG CHEW TAB CHEW SCH (08:40)
[2017-08-14] MEDS: MULTIVITAMIN TAB PO SCH (08:40)
[2017-08-14] MEDS: LISINOPRIL 20 MG TAB PO SCH (08:41)
[2017-08-14] MEDS: THIAMINE INJ 100 MG in SODIUM CHLORIDE 0.9% INJ 100 ML IV SCH (09:00)
[2017-08-14] MEDS: QUEtiapine FUMARATE 25 MG TAB PO SCH (10:30)
[2017-08-14] MEDS: THIAMINE HCL 100 MG TAB PO SCH (11:53)
[2017-08-14 12:00] VITALS: BP 105/65; PULSE 76; RESP 18; TEMP 98; O2SAT 95
--- NOTE | 2017-08-14 12:00 | HHI.PR ---
Subjective Remarks No new complaints. Pt denies chest pain or palpitations. Pt denies tremors. Pt states that he had a delay falling asleep last night, but he attributes this to still being on "Jamia time." Not clear how well Dr. Chacon slept last night. Objective Vitals Vital Signs Date Time Temp Pulse Resp B/P (MAP) Pulse Ox O2 Delivery O2 Flow Rate FiO2 08/14/17 08:00 97.6 62 18 128/90 (103) 98 08/14/17 05:00 97.4 77 18 127/74 (91) 100 08/14/17 00:00 97.5 66 18 117/69 (85) 96 08/13/17 21:45 Room Air 08/13/17 20:00 98.0 68 18 156/102 (120) 97 08/13/17 18:09 77 08/13/17 17:25 7 08/13/17 16:00 97.8 72 22 127/68 (87) 98 08/13/17 14:45 75 08/13/17 12:27 98.0 74 22 140/81 (100) 98 08/13/17 12:00 72 Result Diagram: 08/12/17 1730 08/12/17 173 Imaging Last Impressions Neck Magnetic Resonance Angiography 08/12/171744 Signed Impressions: Service Date/Time: Saturday, August 12, 2017 18:00 - CONCLUSION: 1. Minimal focal stenosis involving the right proximal internal carotid artery. 2. Moderate focal stenosis involving the right proximal external carotid artery. 3. No significant stenosis or occlusion of the left carotid system. Eliezer Navarro MD Head Magnetic Resonance Angiography 08/12/171744 Signed Impressions: Service Date/Time: Saturday, August 12, 2017 18:00 - CONCLUSION: 1. Patent bilateral posterior communicating arteries. 2. No significant stenosis, occlusion or aneurysm formation. Eliezer Navarro MD Brain MRI 08/12/171741 Signed Impressions: Service Date/Time: Saturday, August 12, 2017 18:00 - CONCLUSION: 1. Very minimal scattered periventricular and subcortical white matter small vessel ischemic changes. 2. No acute infarct or acute hemorrhage, midline shift, extra-axial fluid collection or abnormal enhancing mass lesion. Eliezer Navarro MD Head CT 08/12/17 735 Signed Impressions: Service Date/Time: Saturday, August 12, 2017 17:51 - CONCLUSION: Loss of waldrop matter-white matter differentiation in the right frontal region indicating possible acute infarct. No evidence of hemorrhage. Everett Valentine MD Objective Remarks GENERAL: This is a well-nourished, well-developed patient, in no apparent distress. CARDIOVASCULAR: Regular rate and rhythm without murmurs, gallops, or rubs. RESPIRATORY: Clear to auscultation. Breath sounds equal bilaterally. No wheezes , rales, or rhonchi. GASTROINTESTINAL: Abdomen soft, non-tender, nondistended. Normal active bowel sounds MUSCULOSKELETAL: Extremities without clubbing, cyanosis, or edema. NEURO: Alert & Oriented x4 to person, place, time, situation. Moves all ext x4 A/P Problem List: (1) Alcohol dependence ICD Codes: F10.20 - Alcohol dependence, uncomplicated Status: Acute Plan: - Pt brought to ED with severe agitation, pressured speech, flight of ideas, no sleep in 56 hrs and certainly might be experiencing rochelle. - Pt was from his significant other on June 25 which seems to have precipitated his mood d/o. - Pt suffers from etoh dependence and may have had etoh related seizures in the past and possibly the day prior to admission. - Pt flew in from [place] to [facility] and brought to ED by friends. Pt admits to [address] here[address] - Pt will only admit to 2 etoh drinks on average per day but sources close to him say it could be more like 6-8drinks at least. - Pt currently has etoh in his system and is not currenty in etoh w/d and I see no evidence for hepatic encephalopathy. His current sx's seem to be related to his mood d/o, but he is at significant - MRI brain (08/13/17) --> No acute findings - MRA brain (08/13/17) --> NO acute findings - MRA neck (08/13/17) --> no hemodynamically significant stenosis - EEG (08/13/17) --> NO seizure activity - TSH, B12 --> WNL - RPR --> Non-reactive - Pt likely has both etoh dependence and Bipolar Disorder. Currently manic. - Case reviewed with pt's outpatient Psychiatrist, Dr. Gautam (08/14/17) - Case reviewed with Neurology, Dr. Oconnor, (08/13/17). - Case d/w Dr. Almonte (08/14/17) - continue scheduled librium. Continue current q6h dosing for now - ativan per [facility] protocol - thiamin, folate, MVI - DVT prophylaxis - supportive care - will continue to observe pt on medical floor. If pt remains stable, then anticipate transfer to medical/psychiatry floor in 2-3 days. (2) Rochelle ICD Codes: F30.9 - Manic episode, unspecified Status: Acute Plan: - likely d/t underlying biopolar disorder - Case d/w Dr. Almonte (08/14) - slowly increase seroquel, observe for SEs - seroquel increased to 25mg qAM and 75mg qPM - Pt wants to go to an inpatient alcohol treatment program following this hospitalization in either [place] or the [facility] in order to be close to family - Discharge planning d/w [facility] Case Mgmt (08/15) - see above - case d/w Dr. Chacon and friend Dr. Calzada at the bedside. - All questions answered to the best of my ability. Problem Qualifiers (1) Alcohol dependence: Qualified Codes: F10.29 - Alcohol dependence with unspecified alcohol-induced disorder Tito Dunn DO August 14, 2017 12:00
[2017-08-14] MEDS: SODIUM CHLOR 0.9% 1000 ML INJ 1,000 ML IV SCH (12:15)
[2017-08-14 16:00] VITALS: BP_SYST 118; BP_SYST 120; BP_DIAS 85; BP_DIAS 88; BP_DIAS 90; PULSE 65; RESP 18; TEMP 98; O2SAT 99
[2017-08-14 20:00] VITALS: BP 119/78; PULSE 68; RESP 18; TEMP 98.5; O2SAT 98
[2017-08-14] MEDS ORDERED: QUEtiapine FUMARATE 25 MG TAB PO SCH (21:00)
[2017-08-14] MEDS: ATORVASTATIN 40 MG TAB PO SCH (22:01)
[2017-08-15] VITALS (8 sets, daily range): BP systolic 103–139; BP diastolic 59–94; PULSE 52–75; RESP 18–20; TEMP 97.2–98.6; O2SAT 95–99
[2017-08-15] MEDS: chlordiazePOXIDE 25 MG CAP PO SCH ×5 (00:08→23:54)
[2017-08-15] MEDS: SODIUM CHLOR 0.9% 1000 ML INJ 1,000 ML IV SCH ×2 (00:43→20:59)
[2017-08-15] MEDS: LISINOPRIL 20 MG TAB PO SCH (09:00)
[2017-08-15] MEDS: THIAMINE HCL 100 MG TAB PO SCH (09:04)
[2017-08-15] MEDS: ASPIRIN 81 MG CHEW TAB CHEW SCH (09:04)
[2017-08-15] MEDS: QUEtiapine FUMARATE 25 MG TAB PO SCH (09:04)
[2017-08-15] MEDS: MULTIVITAMIN TAB PO SCH (09:04)
[2017-08-15] MEDS: levETIRAcetam 500 MG TAB PO SCH ×2 (09:04→21:01)
--- NOTE | 2017-08-15 14:22 | HHI.PR ---
Review/Management Diagnosis SZ--stable, continue keppra Plan continue keppra continue current therapy for anxiety. monitor for possible withdrawal Diagnosis/Plan: Subjective Subjective Comments No acute events reported No seizures He feels the quetipine is helpful. tolerating keppra Active Medications Current Medications Medications (Trade) Dose Ordered Sig/Glenny Route Start Time Stop Time Status Last Admin (NS Flush) 2 ml UNSCH PRN IV FLUSH 08/12/17 17:30 08/12/17 17:48 (Romazicon Inj) 0.2 mg Q1M PRN IV PUSH 08/12/17 18:00 (Ativan) 1 mg Q4H PRN PO 08/12/17 18:00 (Ativan Inj) 1 mg Q4H PRN IV PUSH 08/12/17 18:00 (Ativan) 2 mg Q2H PRN PO 08/12/17 18:00 (Ativan Inj) 2 mg Q2H PRN IV PUSH 08/12/17 18:00 (Ativan Inj) 2 mg Q1H PRN IV PUSH 08/12/17 18:00 (Ativan Inj) 2 mg Q15M PRN IV PUSH 08/12/17 18:00 (Aspirin Chew) 81 mg DAILY CHEW 08/13/17 09:00 08/15/17 09:04 (Lipitor) 40 mg HS PO 08/12/17 21:00 08/14/17 22:01 (Prinivil) 20 mg DAILY PO 08/13/17 09:00 08/14/17 08:41 (Catapres) 0.1 mg Q4H PRN PO 08/12/17 19:45 Sodium Chloride 1,000 ml @ 75 mls/hr [id number] IV 08/12/17 20:15 08/12/17 22:14 (Librium) 25 mg Q6HR PO 08/13/17 06:00 08/15/17 13:04 (Keppra) 500 mg Q12HR PO 08/12/17 21:15 08/15/17 09:04 (Theragran) 1 tab DAILY PO 08/13/17 09:00 08/15/17 09:04 (SEROquel) 75 mg HS PO 08/14/17 21:00 08/14/17 22:01 (SEROquel) 25 mg DAILY PO 08/14/17 09:00 08/15/17 09:04 (Vitamin B1) 100 mg DAILY PO 08/14/17 11:00 08/15/17 09:04 Allergies Allergies Coded Allergies melon (Unverified Allergy, Severe, Swelling, 08/12/17) Uncoded Allergies NSAIDS ( Allergy, Severe, 07/10/14) TUMARIC ( Allergy, Severe, Anaphylaxis, 09/13/14) Exam I&O / VS Vital Signs Date Time Temp Pulse Resp B/P (MAP) Pulse Ox O2 Delivery O2 Flow Rate FiO2 08/15/17 12:00 97.5 70 18 120/78 (92) 96 08/15/17 08:00 97.5 67 18 104/74 (84) 98 08/15/17 05:00 98.6 52 18 112/59 (76) 98 08/15/17 00:00 97.2 55 18 103/75 (84) 95 08/14/17 20:00 98.5 68 18 119/78 (92) 98 08/14/17 16:00 120/90 (100) 08/14/17 16:00 98.0 65 18 120/85 (97) 99 08/14/17 16:00 118/88 (98) Exam Comments alert, speech normal and appropriate no focal motor deficits CN 2-12 intact Chas Oconnor MD PhD August 15, 2017 14:22
--- NOTE | 2017-08-15 15:27 | HHI.PYPN ---
Subjective Remarks Patient seen and examined. Chart reviewed. Case discussed with nurse; no behavioral issues noted overnight. Orthostatic BPs reviewed; no evidence of orthostasis by BP. I have asked that orthostatic HRs also be obtained. Patient has a female worker from his practice visiting, whom he allows to remain for the interview. On my exam, patient remains hyperverbal with ongoing loosening of associations. He believes that he has a particularly acute sense of hearing and notes that there is a "wailer" in the room next door. This leads to a bit of punning in which he conjectures that the patient may have a weight problem (i.e. is a 'whaler'). He has better insight into his thought disorder and notes that he has "bubbly brain." Denies SI/HI. Denies AVH. Denies side effects from medications. No ongoing lightheadedness. He notes his brother Sergio ([phone]) will be visiting tomorrow and gives me permission to reach out to Sergio for collateral, which I will endeavor to do after their visit so I can get Sergio's input regarding patient's progress. Review of Systems Except as stated in HPI: all other systems reviewed are Neg Mental Status Examination Appearance: Appropriate Consciousness: Alert Orientation: x4 Motor Activity: Other (No motor abnormalities noted. No signs of withdrawal noted.) Speech: Other (Less pressured today.) Language: Adequate Fund of Knowledge: Adequate Attention and Concentration: Easily Distracted Memory: Unremarkable Mood: Other (Mildly elevated) Affect: Other (Mildly expansive) Thought Process & Associations: Loose associations, Circumstantial Thought Content: Appropriate Hallucination Type: None Delusion Type: None Suicidal Ideation: No Homicidal Ideation: No Mental Status Exam Remarks Insight fair, judgment likely fair/poor. Results Labs Labs reviewed. Vitals/IOs Vital Signs Date Time Temp Pulse Resp B/P (MAP) Pulse Ox O2 Delivery O2 Flow Rate FiO2 08/15/17 12:00 97.5 70 18 120/78 (92) 96 08/13/17 21:45 Room Air 08/13/17 07:00 99 Assessment & Plan Problem List: (1) Mervat ICD Codes: F30.9 - Manic episode, unspecified Status: Acute (2) Alcohol use ICD Codes: Z78.9 - Other specified health status Assessment & Plan Mental status more or less unchanged today; ongoing mervat. Given good tolerability of the Seroquel, I think it makes sense to begin more aggressive titration of Seroquel to bring the dose into range likely to provide meaningful mood stabilization. Seroquel 50mg qAM and 150mg qHS with BP parameters. Consider beginning to taper his Librium as he has no signs of withdrawal and has CIWA with Ativan for breakthrough withdrawal. Patient remains agreeable to voluntary psychiatric admission following medical stabilization with plans for chem dep rehab thereafter. Case d/w RN. Justification for Cont. Inpt. Per primary team. Dick Almonte MD August 15, 2017 15:27
--- NOTE | 2017-08-15 16:24 | HHI.PR ---
Subjective Remarks Pt remains hyperverbal. Pt denies chest pain or palpitations. Pt denies tremors. Pt ambulating to the BR without difficulties. Objective Vitals Vital Signs Date Time Temp Pulse Resp B/P (MAP) Pulse Ox O2 Delivery O2 Flow Rate FiO2 08/15/17 12:00 97.5 70 18 120/78 (92) 96 08/15/17 08:00 97.5 67 18 104/74 (84) 98 08/15/17 05:00 98.6 52 18 112/59 (76) 98 08/15/17 00:00 97.2 55 18 103/75 (84) 95 08/14/17 20:00 98.5 68 18 119/78 (92) 98 Result Diagram: 08/12/17172908/12/171729 Imaging Last Impressions Neck Magnetic Resonance Angiography 08/12/171744 Signed Impressions: Service Date/Time: Saturday, August 12, 2017 18:00 - CONCLUSION: 1. Minimal focal stenosis involving the right proximal internal carotid artery. 2. Moderate focal stenosis involving the right proximal external carotid artery. 3. No significant stenosis or occlusion of the left carotid system. Eliezer Navarro MD Head Magnetic Resonance Angiography 08/12/171744 Signed Impressions: Service Date/Time: Saturday, August 12, 2017 18:00 - CONCLUSION: 1. Patent bilateral posterior communicating arteries. 2. No significant stenosis, occlusion or aneurysm formation. Eliezer Navarro MD Brain MRI 08/12/171741 Signed Impressions: Service Date/Time: Saturday, August 12, 2017 18:00 - CONCLUSION: 1. Very minimal scattered periventricular and subcortical white matter small vessel ischemic changes. 2. No acute infarct or acute hemorrhage, midline shift, extra-axial fluid collection or abnormal enhancing mass lesion. Eliezer Navarro MD Head CT 08/12/17 1721 Signed Impressions: Service Date/Time: Saturday, August 12, 2017 17:51 - CONCLUSION: Loss of waldrop matter-white matter differentiation in the right frontal region indicating possible acute infarct. No evidence of hemorrhage. Everett Valentine MD Objective Remarks GENERAL: This is a well-nourished, well-developed patient, in no apparent distress. CARDIOVASCULAR: Regular rate and rhythm without murmurs, gallops, or rubs. RESPIRATORY: Clear to auscultation. Breath sounds equal bilaterally. No wheezes , rales, or rhonchi. GASTROINTESTINAL: Abdomen soft, non-tender, nondistended. Normal active bowel sounds MUSCULOSKELETAL: Extremities without clubbing, cyanosis, or edema. NEURO: Alert & Oriented x4 to person, place, time, situation. Moves all ext x4 A/P Problem List: (1) Alcohol dependence ICD Codes: F10.20 - Alcohol dependence, uncomplicated Status: Acute Plan: - Pt brought to ED with severe agitation, pressured speech, flight of ideas, no sleep in 56 hrs and certainly might be experiencing rochelle. - Pt was from his significant other on June 25 which seems to have precipitated his mood d/o. - Pt suffers from etoh dependence and may have had etoh related seizures in the past and possibly the day prior to admission. - Pt flew in from [place] to [facility] and brought to ED by friends. Pt admits to [address] here[address] - Pt will only admit to 2 etoh drinks on average per day but sources close to him say it could be more like 6-8drinks at least. - Pt currently has etoh in his system and is not currenty in etoh w/d and I see no evidence for hepatic encephalopathy. His current sx's seem to be related to his mood d/o, but he is at significant - MRI brain (08/13/17) --> No acute findings - MRA brain (08/13/17) --> NO acute findings - MRA neck (08/13/17) --> no hemodynamically significant stenosis - EEG (08/13/17) --> NO seizure activity - TSH, B12 --> WNL - RPR --> Non-reactive - Pt likely has both etoh dependence and Bipolar Disorder. Currently manic. - Case reviewed with pt's outpatient Psychiatrist, Dr. Gautam (08/14/17) - Case reviewed with Neurology, Dr. Oconnor, (08/13/17). - Case d/w Dr. Almonte (08/15/17) - continue scheduled librium. Continue current q6h dosing for now. If pt continues to show NO signs of DT, then will likely start to wean librium in the next 1-2 days. - ativan per [facility] protocol - thiamin, folate, MVI - DVT prophylaxis - supportive care - will continue to observe pt on medical floor. If pt remains stable, then anticipate transfer to medical/psychiatry floor in 1-2 days. (2) Rochelle ICD Codes: F30.9 - Manic episode, unspecified Status: Acute Plan: - likely d/t underlying biopolar disorder - Case d/w Dr. Almonte (08/14) - Pt has been tolerating seroquel - Psychiatry has increased pt's seroquel to 50mg qAM & 150mg qPM. I agree. - slowly increase seroquel, observe for SEs - Pt wants to go to an inpatient alcohol treatment program following this hospitalization in either [place] or the [facility] in order to be close to family - Discharge planning d/w [facility] Case Mgmt (08/15) - see above - case d/w Dr. Chacon and friend Dr. Calzada at the bedside. - All questions answered to the best of my ability. (3) HTN (hypertension) ICD Codes: I10 - Essential (primary) hypertension Status: Chronic Plan: - pt is trending normotensive/hypotensive - stop lisinopril - prn PO Catapres. Problem Qualifiers (1) Alcohol dependence: Qualified Codes: F10.29 - Alcohol dependence with unspecified alcohol-induced disorder (2) HTN (hypertension): Qualified Codes: I10 - Essential (primary) hypertension Tito Dunn DO August 15, 2017 16:24
[2017-08-15] MEDS ORDERED: QUEtiapine FUMARATE 25 MG TAB PO SCH (21:00)
[2017-08-15] MEDS ORDERED: QUEtiapine FUMARATE 100 MG TAB PO SCH (21:00)
[2017-08-15] MEDS: ATORVASTATIN 40 MG TAB PO SCH (21:01)
[2017-08-16] VITALS: BP 106/61; PULSE 54; RESP 18; TEMP 97.5; O2SAT 95
[2017-08-16] MEDS: SODIUM CHLOR 0.9% 1000 ML INJ 1,000 ML IV SCH ×2 (02:58→17:35)
[2017-08-16] MEDS: chlordiazePOXIDE 25 MG CAP PO SCH ×3 (06:14→17:22)
[2017-08-16 07:14] VITALS: BP 108/59; PULSE 56; RESP 18; TEMP 97.5; O2SAT 99
[2017-08-16] MEDS: ASPIRIN 81 MG CHEW TAB CHEW SCH (08:23)
[2017-08-16] MEDS: MULTIVITAMIN TAB PO SCH (08:24)
[2017-08-16] MEDS: LISINOPRIL 20 MG TAB PO SCH (08:24)
[2017-08-16] MEDS: levETIRAcetam 500 MG TAB PO SCH ×2 (08:24→21:06)
[2017-08-16] MEDS: THIAMINE HCL 100 MG TAB PO SCH (08:24)
[2017-08-16 08:40] VITALS: BP 111/62; PULSE 54; RESP 16; TEMP 97.1; O2SAT 96
[2017-08-16] MEDS ORDERED: QUEtiapine FUMARATE 25 MG TAB PO SCH (09:00)
[2017-08-16 12:00] VITALS: BP 115/73; PULSE 70; RESP 20; TEMP 97.5; O2SAT 94
--- NOTE | 2017-08-16 15:59 | HHI.PR ---
Subjective Remarks No new complaints. Again, pt denies chest pain or palpitations. Pt is eating well without. Objective Vitals Vital Signs Date Time Temp Pulse Resp B/P (MAP) Pulse Ox O2 Delivery O2 Flow Rate FiO2 08/16/17 12:00 97.5 70 20 115/73 (87) 94 08/16/17 08:40 97.1 54 16 111/62 (78) 96 08/16/17 07:14 97.5 56 18 108/59 (75) 99 08/16/17 00:00 97.5 54 18 106/61 (76) 95 08/15/17 20:00 98.3 67 20 139/94 (109) 99 08/15/17 16:02 75 129/90 (103) 08/15/17 16:01 65 125/86 (99) 08/15/17 16:00 97.9 56 18 128/85 (99) 98 Result Diagram: 08/12/17172908/12/171729 Imaging Last Impressions Neck Magnetic Resonance Angiography 08/12/171744 Signed Impressions: Service Date/Time: Saturday, August 12, 2017 18:00 - CONCLUSION: 1. Minimal focal stenosis involving the right proximal internal carotid artery. 2. Moderate focal stenosis involving the right proximal external carotid artery. 3. No significant stenosis or occlusion of the left carotid system. Eliezer Navarro MD Head Magnetic Resonance Angiography 08/12/171744 Signed Impressions: Service Date/Time: Saturday, August 12, 2017 18:00 - CONCLUSION: 1. Patent bilateral posterior communicating arteries. 2. No significant stenosis, occlusion or aneurysm formation. Eliezer Navarro MD Brain MRI 08/12/171741 Signed Impressions: Service Date/Time: Saturday, August 12, 2017 18:00 - CONCLUSION: 1. Very minimal scattered periventricular and subcortical white matter small vessel ischemic changes. 2. No acute infarct or acute hemorrhage, midline shift, extra-axial fluid collection or abnormal enhancing mass lesion. Eliezer Navarro MD Head CT 08/12/171720 Signed Impressions: Service Date/Time: Saturday, August 12, 2017 17:51 - CONCLUSION: Loss of waldrop matter-white matter differentiation in the right frontal region indicating possible acute infarct. No evidence of hemorrhage. Everett Valentine MD Objective Remarks GENERAL: This is a well-nourished, well-developed patient, in no apparent distress. CARDIOVASCULAR: Regular rate and rhythm without murmurs, gallops, or rubs. RESPIRATORY: Clear to auscultation. Breath sounds equal bilaterally. No wheezes , rales, or rhonchi. GASTROINTESTINAL: Abdomen soft, non-tender, nondistended. Normal active bowel sounds MUSCULOSKELETAL: Extremities without clubbing, cyanosis, or edema. NEURO: Alert & Oriented x4 to person, place, time, situation. Moves all ext x4 A/P Problem List: (1) Alcohol dependence ICD Codes: F10.20 - Alcohol dependence, uncomplicated Status: Acute Plan: - Pt brought to ED with severe agitation, pressured speech, flight of ideas, no sleep in 56 hrs and certainly might be experiencing rochelle. - Pt was from his significant other on June 25 which seems to have precipitated his mood d/o. - Pt suffers from etoh dependence and may have had etoh related seizures in the past and possibly the day prior to admission. - Pt flew in from [place] to [facility] and brought to ED by friends. Pt admits to [address] here[address] - Pt will only admit to 2 etoh drinks on average per day but sources close to him say it could be more like 6-8drinks at least. - Pt currently has etoh in his system and is not currenty in etoh w/d and I see no evidence for hepatic encephalopathy. His current sx's seem to be related to his mood d/o, but he is at significant - MRI brain (08/13/17) --> No acute findings - MRA brain (08/13/17) --> NO acute findings - MRA neck (08/13/17) --> no hemodynamically significant stenosis - EEG (08/13/17) --> NO seizure activity - TSH, B12 --> WNL - RPR --> Non-reactive - Pt likely has both etoh dependence and Bipolar Disorder. Currently manic. - Case reviewed with pt's outpatient Psychiatrist, Dr. Gautam (08/14/17) - Case reviewed with Neurology, Dr. Oconnor, (08/13/17). - Case d/w Dr. Almonte (08/15/17) - continue scheduled librium. Continue current q6h dosing for now. If pt continues to show NO signs of DT, then will likely start to wean librium in the next 1-2 days. - ativan per [facility] protocol - thiamin, folate, MVI - DVT prophylaxis - supportive care - will continue to observe pt on medical floor. If pt remains stable, then anticipate transfer to medical/psychiatry floor in 1-2 days. (2) [place]le ICD Codes: F30.9 - Manic episode, unspecified Status: Acute Plan: - likely d/t underlying biopolar disorder - Case d/w Dr. Almonte (08/14) - Pt has been tolerating seroquel - Psychiatry has increased pt's seroquel to 50mg qAM & 150mg qPM. I agree. - slowly increase seroquel, observe for SEs - Pt wants to go to an inpatient alcohol treatment program following this hospitalization in either [place] or the [facility] in order to be close to family - Discharge planning d/w [facility] Case Mgmt (08/15) - see above - case d/w Dr. Chacon and friend Dr. Calzada at the bedside. - All questions answered to the best of my ability. (3) HTN (hypertension) ICD Codes: I10 - Essential (primary) hypertension Status: Chronic Plan: - pt is trending normotensive/hypotensive - stop lisinopril - prn PO Catapres. Problem Qualifiers (1) Alcohol dependence: Qualified Codes: F10.29 - Alcohol dependence with unspecified alcohol-induced disorder (2) HTN (hypertension): Qualified Codes: I10 - Essential (primary) hypertension Tito Dunn DO August 16, 2017 15:59
[2017-08-16 16:00] VITALS: BP 128/82; PULSE 62; RESP 22; TEMP 97.7; O2SAT 99
--- NOTE | 2017-08-16 17:15 | HHI.PYPN ---
Subjective Remarks Patient seen and examined in joint visit with Dr. Dunn. Case d/w Dr. Dunn. Also in attendance were patient's brother Sergio and friend, Dr. Calzada. On my exam today, patient seems to be improving with titration of Seroquel. Affect remains appropriate throughout interview. Thought process is considerably more organized today, although patient does exhibit some detours with excessive detail. Focus and concentration are improving, and the patient is able to attend to the conversation despite the presence of multiple interlocutors. Denies SI/HI. Denies AVH. He denies side effects from Seroquel besides some mild dry mouth. He does describe a transient anxious sensation after Seroquel dose last night. This does not sound like akathisia or restless legs with closer questioning. No physical complaints. With patient's permission, spoke with Dr. Calzada and Sergio outside of the room. Both note improvement in patient's mental state with addition of Seroquel. Sergio expresses concern about patient's alcohol use. Psychoeducation provided regarding mervat and it's treatment. All of brother's questions answered. Review of Systems Except as stated in HPI: all other systems reviewed are Neg Mental Status Examination Appearance: Appropriate Consciousness: Alert Orientation: x4 Motor Activity: Normal gait, Other (No hand tremor, no cogwheeling, no dystonia , no dyskinesia, no other motor abnormalities noted. No signs of withdrawal noted.) Speech: Other (Less pressured today.) Language: Adequate Fund of Knowledge: Adequate Attention and Concentration: Easily Distracted Memory: Unremarkable Mood: Appropriate Affect: Appropriate Thought Process & Associations: Circumstantial, Other (Minimal loosening of associations) Thought Content: Appropriate Hallucination Type: None Delusion Type: None Suicidal Ideation: No Homicidal Ideation: No Mental Status Exam Remarks Insight and judgment are improving Results Labs Labs reviewed Vitals/IOs Vital Signs Date Time Temp Pulse Resp B/P (MAP) Pulse Ox O2 Delivery O2 Flow Rate FiO2 08/16/17 12:00 97.5 70 20 115/73 (87) 94 08/13/17 21:45 Room Air 08/13/17 07:00 99 Assessment & Plan Problem List: (1) Mervat ICD Codes: F30.9 - Manic episode, unspecified Status: Acute Assessment & Plan: Suspect BPAD, manic, improving (2) Alcohol use ICD Codes: Z78.9 - Other specified health status Assessment & Plan Definite improvement with titration of Seroquel. Recommend ongoing titration of Seroquel for mood stabilization: 200mg tonight and 100mg tomorrow morning. Plan for further titration of Seroquel as tolerated into therapeutic dosage range for monotherapy for mervat (400-800mg total daily dose). Monitor for further transient anxiety after Seroquel dosing. Biotene p.r.n. dry mouth. Patient remains agreeable to inpatient psychiatry if needed but would like to remain on medical floor if possible; Dr. Dunn notes he plans to retain the patient on medical floor through the weekend. After care plan remains chem dep rehab program. I will be out of the office Sunday and through the weekend; case signed out to Dr. Darby. I spent >25min at the bedside and in consultation with family as well as additional time in care coordination and chart review. Justification for Cont. Inpt. . Dick Almonte MD August 16, 2017 17:15
[2017-08-16 20:00] VITALS: BP 127/81; PULSE 67; RESP 20; TEMP 97.8; O2SAT 98
[2017-08-16] MEDS ORDERED: QUEtiapine FUMARATE 200 MG TAB PO SCH (21:00)
[2017-08-16] MEDS: ATORVASTATIN 40 MG TAB PO SCH (21:07)
[2017-08-17] VITALS: BP_SYST 123; BP_SYST 99; BP_DIAS 57; BP_DIAS 86; PULSE 67; PULSE 69; RESP 16; RESP 21; TEMP 97.2; TEMP 97.8; O2SAT 100; O2SAT 95
[2017-08-17] MEDS: chlordiazePOXIDE 25 MG CAP PO SCH ×4 (00:37→23:23)
[2017-08-17 06:31] VITALS: BP 103/62; PULSE 69; RESP 18; TEMP 97.3; O2SAT 97
[2017-08-17] MEDS: SODIUM CHLOR 0.9% 1000 ML INJ 1,000 ML IV SCH ×2 (06:55→09:59)
[2017-08-17 08:00] VITALS: BP 118/74; PULSE 54; RESP 20; TEMP 97.8; O2SAT 98
[2017-08-17] MEDS: THIAMINE HCL 100 MG TAB PO SCH (09:58)
[2017-08-17] MEDS: MULTIVITAMIN TAB PO SCH (09:58)
[2017-08-17] MEDS: QUEtiapine FUMARATE 100 MG TAB PO SCH (09:58)
[2017-08-17] MEDS: LISINOPRIL 20 MG TAB PO SCH (09:58)
[2017-08-17] MEDS: levETIRAcetam 500 MG TAB PO SCH ×2 (09:59→23:24)
[2017-08-17] MEDS: ASPIRIN 81 MG CHEW TAB CHEW SCH (09:59)
[2017-08-17 12:00] VITALS: BP 115/73; PULSE 59; RESP 22; TEMP 98.1; O2SAT 98
--- NOTE | 2017-08-17 15:06 | HHI.PR ---
Subjective Remarks Pt sleeping when I entered the room, but easily awoke to voice. Pt's pressured speech is much improved. Pt denied chest pain or palpitations. Pt denied tremors. Pt states that he fell asleep approximately 2 hours after taking his seroquel last night. Pt reports that he quickly fell asleep after taking librium, but then remained asleep until the morning. Objective Vitals Vital Signs Date Time Temp Pulse Resp B/P (MAP) Pulse Ox O2 Delivery O2 Flow Rate FiO2 08/17/17 08:00 97.8 54 20 118/74 (89) 98 08/17/17 06:31 97.3 69 18 103/62 (76) 97 08/17/17 00:00 97.8 67 21 99/57 (71) 95 08/16/17 20:00 97.8 67 20 127/81 (96) 98 08/16/17 16:00 97.7 62 22 128/82 (97) 99 Imaging Last Impressions Neck Magnetic Resonance Angiography 08/12/171744 Signed Impressions: Service Date/Time: Saturday, August 12, 2017 18:00 - CONCLUSION: 1. Minimal focal stenosis involving the right proximal internal carotid artery. 2. Moderate focal stenosis involving the right proximal external carotid artery. 3. No significant stenosis or occlusion of the left carotid system. Eliezer Navarro MD Head Magnetic Resonance Angiography 08/12/171744 Signed Impressions: Service Date/Time: Saturday, August 12, 2017 18:00 - CONCLUSION: 1. Patent bilateral posterior communicating arteries. 2. No significant stenosis, occlusion or aneurysm formation. Eliezer Navarro MD Brain MRI 08/12/171741 Signed Impressions: Service Date/Time: Saturday, August 12, 2017 18:00 - CONCLUSION: 1. Very minimal scattered periventricular and subcortical white matter small vessel ischemic changes. 2. No acute infarct or acute hemorrhage, midline shift, extra-axial fluid collection or abnormal enhancing mass lesion. Eliezer Navarro MD Head CT 08/12/171720 Signed Impressions: Service Date/Time: Saturday, August 12, 2017 17:51 - CONCLUSION: Loss of waldrop matter-white matter differentiation in the right frontal region indicating possible acute infarct. No evidence of hemorrhage. Everett Valentine MD Objective Remarks GENERAL: This is a well-nourished, well-developed patient, in no apparent distress. CARDIOVASCULAR: Regular rate and rhythm without murmurs, gallops, or rubs. RESPIRATORY: Clear to auscultation. Breath sounds equal bilaterally. No wheezes , rales, or rhonchi. GASTROINTESTINAL: Abdomen soft, non-tender, nondistended. Normal active bowel sounds MUSCULOSKELETAL: Extremities without clubbing, cyanosis, or edema. NEURO: Alert & Oriented x4 to person, place, time, situation. Moves all ext x4 A/P Problem List: (1) Alcohol dependence ICD Codes: F10.20 - Alcohol dependence, uncomplicated Status: Acute Plan: - Pt brought to ED with severe agitation, pressured speech, flight of ideas, no sleep in 56 hrs and certainly might be experiencing rochelle. - Pt was from his significant other on June 25 which seems to have precipitated his mood d/o. - Pt suffers from etoh dependence and may have had etoh related seizures in the past and possibly the day prior to admission. - Pt flew in from [place] to [facility] and brought to ED by friends. Pt admits to [address] here[address] - Pt will only admit to 2 etoh drinks on average per day but sources close to him say it could be more like 6-8drinks at least. - Pt currently has etoh in his system and is not currenty in etoh w/d and I see no evidence for hepatic encephalopathy. His current sx's seem to be related to his mood d/o, but he is at significant - MRI brain (08/13/17) --> No acute findings - MRA brain (08/13/17) --> NO acute findings - MRA neck (08/13/17) --> no hemodynamically significant stenosis - EEG (08/13/17) --> NO seizure activity - TSH, B12 --> WNL - RPR --> Non-reactive - Pt likely has both etoh dependence and Bipolar Disorder. Currently manic. - Case reviewed with pt's outpatient Psychiatrist, Dr. Gautam (08/17/17) - Case reviewed with Neurology, Dr. Oconnor, (08/13/17). - Case d/w Dr. Almonte (08/15/17) - decrease librium to 25mg BID - ativan per [facility] protocol - thiamin, folate, MVI - DVT prophylaxis - supportive care - will continue to observe pt on medical floor. (2) Rochelle ICD Codes: F30.9 - Manic episode, unspecified Status: Acute Plan: - likely d/t underlying biopolar disorder - Case d/w Dr. Almonte (08/14) - Pt has been tolerating seroquel - Case d/w covering Psychiatrist, Dr. Darby. - slowly increase seroquel, observe for SEs - continue seroquel 100mg in AM and increase PM seroquel to 300mg hs. - anticipate that pt may require additional 3-4 days of hospitalization to appropriately titrate his seroquel - Pt wants to go to an inpatient alcohol treatment program following this hospitalization in either [place] or the [facility] in order to be close to family - Discharge planning d/w [facility] Case Mgmt (08/15) - see above - case d/w Dr. Chacon and friend Dr. Calzada at the bedside. - All questions answered to the best of my ability. (3) HTN (hypertension) ICD Codes: I10 - Essential (primary) hypertension Status: Chronic Plan: - pt is trending normotensive/hypotensive - stop lisinopril - prn PO Catapres. Problem Qualifiers (1) Alcohol dependence: Qualified Codes: F10.29 - Alcohol dependence with unspecified alcohol-induced disorder (2) HTN (hypertension): Qualified Codes: I10 - Essential (primary) hypertension Tito Dunn DO August 17, 2017 15:06
[2017-08-17 16:58] VITALS: BP 120/84; PULSE 66; RESP 22; TEMP 97.6; O2SAT 98
--- NOTE | 2017-08-17 18:04 | HHI.PR ---
Review/Management Diagnosis SZ--stable, continue keppra Plan continue keppra continue current therapy for anxiety. monitor for possible withdrawal Diagnosis/Plan: Subjective Subjective Comments No acute events reported No sz tapering librium tolerating keppra Active Medications Current Medications Medications (Trade) Dose Ordered Sig/Glenny Route Start Time Stop Time Status Last Admin (NS Flush) 2 ml UNSCH PRN IV FLUSH 08/12/17 17:30 08/12/17 17:48 (Romazicon Inj) 0.2 mg Q1M PRN IV PUSH 08/12/17 18:00 (Ativan) 1 mg Q4H PRN PO 08/12/17 18:00 (Ativan Inj) 1 mg Q4H PRN IV PUSH 08/12/17 18:00 (Ativan) 2 mg Q2H PRN PO 08/12/17 18:00 (Ativan Inj) 2 mg Q2H PRN IV PUSH 08/12/17 18:00 (Ativan Inj) 2 mg Q1H PRN IV PUSH 08/12/17 18:00 (Ativan Inj) 2 mg Q15M PRN IV PUSH 08/12/17 18:00 (Aspirin Chew) 81 mg DAILY CHEW 08/13/17 09:00 08/17/17 09:59 (Lipitor) 40 mg HS PO 08/12/17 21:00 08/16/17 21:07 (Prinivil) 20 mg DAILY PO 08/13/17 09:00 08/17/17 09:58 (Catapres) 0.1 mg Q4H PRN PO 08/12/17 19:45 (Keppra) 500 mg Q12HR PO 08/12/17 21:15 08/17/17 09:59 (Theragran) 1 tab DAILY PO 08/13/17 09:00 08/17/17 09:58 (Vitamin B1) 100 mg DAILY PO 08/14/17 11:00 08/17/17 09:58 (SEROquel) 100 mg DAILY PO 08/17/17 09:00 08/17/17 09:58 (Librium) 25 mg Q12HR PO 08/17/17 21:00 (SEROquel) 300 mg HS PO 08/17/17 21:00 Allergies Allergies Coded Allergies melon (Unverified Allergy, Severe, Swelling, 08/12/17) Uncoded Allergies NSAIDS ( Allergy, Severe, 07/10/14) TUMARIC ( Allergy, Severe, Anaphylaxis, 09/13/14) Exam I&O / VS Vital Signs Date Time Temp Pulse Resp B/P (MAP) Pulse Ox O2 Delivery O2 Flow Rate FiO2 08/17/17 16:58 97.6 66 22 120/84 (96) 98 08/17/17 12:00 98.1 59 22 115/73 (87) 98 08/17/17 08:00 97.8 54 20 118/74 (89) 98 08/17/17 06:31 97.3 69 18 103/62 (76) 97 08/17/17 00:00 97.8 67 21 99/57 (71) 95 08/16/17 20:00 97.8 67 20 127/81 (96) 98 Exam Comments alert, speech normal and appropriate no focal motor deficits gait normal with no ataxia No tremors or tremulousness Chas Oconnor MD PhD August 17, 2017 18:04
[2017-08-17] MEDS: ATORVASTATIN 40 MG TAB PO SCH (23:23)
[2017-08-17] MEDS: QUEtiapine FUMARATE 200 MG TAB PO SCH (23:23)
[2017-08-18] VITALS: BP 119/71; PULSE 61; RESP 16; O2SAT 97
[2017-08-18 07:27] LABS: AUTOMATED NEUTROPHIL # 2.6 TH/MM3 (1.8-7.7); BASOPHIL % 0.7 % (0.0-2.0); EOSINOPHIL # 0.2 TH/MM3 (0-0.4); EOSINOPHIL % 3.2 % (0.0-4.0); HEMATOCRIT 40.7 % (39.0-51.0); HEMOGLOBIN 13.8 GM/DL (13.0-17.0); LYMPH % 37.7 % (9.0-44.0); MEAN CELL VOLUME 94.1 FL (80.0-100.0); MEAN CORPUSCULAR HEMOGLOBIN 31.8 PG (27.0-34.0); MEAN CORPUSCULAR HGB CONC 33.8 % (32.0-36.0); MEAN PLATELET VOLUME 9.2 FL (7.0-11.0); MONO % 9.6 % (0.0-8.0); MONOCYTE # 0.5 TH/MM3 (0-0.9); NEUT % 48.8 % (16.0-70.0); PLATELET COUNT 207 TH/MM3 (150-450); RED BLOOD COUNT 4.33 MIL/MM3 (4.50-5.90); WHITE BLOOD COUNT 5.3 TH/MM3 (4.0-11.0)
[2017-08-18 08:00] VITALS: BP 124/76; PULSE 52; RESP 20; TEMP 97.5; O2SAT 99
[2017-08-18 08:04] LABS: ALBUMIN 3.4 GM/DL (3.4-5.0); AST (GOT) 23 U/L (15-37); BICARBONATE 25.4 MEQ/L (21.0-32.0); BLOOD UREA NITROGEN 12 MG/DL (7-18); CALCIUM 8.8 MG/DL (8.5-10.1); CHLORIDE 110 MEQ/L (98-107); CREATININE 0.81 MG/DL (0.60-1.30); GLOMERULAR FILTRATION RATE 96 ML/MIN (>89); GLUCOSE,RANDOM 96 MG/DL (74-106); SODIUM (NA) 144 MEQ/L (136-145)
[2017-08-18 08:05] LABS: ALT (GPT) 38 U/L (12-78)
[2017-08-18 08:07] LABS: ALKALINE PHOSPHATASE 66 U/L (45-117); TOTAL BILIRUBIN ADULT 0.5 MG/DL (0.2-1.0); TOTAL PROTEIN 6.6 GM/DL (6.4-8.2)
[2017-08-18] MEDS: THIAMINE HCL 100 MG TAB PO SCH (09:17)
[2017-08-18] MEDS: QUEtiapine FUMARATE 100 MG TAB PO SCH (09:18)
[2017-08-18] MEDS: chlordiazePOXIDE 25 MG CAP PO SCH (09:18)
[2017-08-18] MEDS: LISINOPRIL 20 MG TAB PO SCH (09:18)
[2017-08-18] MEDS: ASPIRIN 81 MG CHEW TAB CHEW SCH (09:18)
[2017-08-18] MEDS: MULTIVITAMIN TAB PO SCH (09:18)
[2017-08-18] MEDS: levETIRAcetam 500 MG TAB PO SCH ×2 (09:18→22:06)
--- NOTE | 2017-08-18 09:45 | HHI.PYPN ---
Subjective Remarks Patient seen for follow, chart reviewed. Discussion nursing staff reported the patient noted with loosening associations, but mostly quiet during the night with the exception of patient being upset last evening after he was woken up for vitals. Patient was found asleep was able to wake up for interview noted to be calm, cooperative. Patient states that he has been feeling "good" except during having dry mouth due to increases and quetiapine recently. Patient noted to have speech with adequate rate tone and prosody although slightly pressured, but was able to allow to interjection when speaking during interview. Patient not noted to be irritable, appropriate affect, noted to have some loosening associations but able to maintain relevance with responses. Patient reports having been visited by his brother yesterday and is considering plan of transitioning into an inpatient rehabilitation program in [place] where he is close to family. Patient states that he just needs to "get away from drinking environment". Patient spent time speaking about his recent stressors which include his recent breakup with his fiance along with his recent seizure and alcohol intake. Patient denies feeling depressed, denies any suicidal homicidal ideations, denies any perceptional service of delusions at this time. Patient also mentioned being upset that he was woken up last evening by a MANAGER [employer]ORY which he felt was rude to him. Discussion about his diagnosis was reviewed in that patient possibly with hypomanic symptoms previously and with exacerbation of symptoms with recent stressors, particularly with his fiancee, which may have allowed for recent manic episode to present. Review of Systems Except as stated in HPI: all other systems reviewed are Neg Mental Status Examination Appearance: Appropriate Consciousness: Alert Orientation: x4 Motor Activity: Normal gait, Other (No hand tremor, no cogwheeling, no dystonia , no dyskinesia, no other motor abnormalities noted. No signs of withdrawal noted.) Speech: Pressured (Slightly), Other (Less pressured today.) Language: Adequate Fund of Knowledge: Adequate Attention and Concentration: Easily Distracted (Less so today) Memory: Unremarkable Mood: Appropriate Affect: Appropriate Thought Process & Associations: Circumstantial, Other (Minimal loosening of associations) Thought Content: Appropriate Hallucination Type: None Delusion Type: None Suicidal Ideation: No Suicidal Plan: No Suicidal Intention: No Homicidal Ideation: No Homicidal Plan: No Homicidal Intention: No Insight: Fair Judgment: Impulsive Results Labs Labs reviewed Test 08/18/17 04:16 White Blood Count 5.3 TH/MM3 Red Blood Count 4.33 MIL/MM3 Hemoglobin 13.8 GM/DL Hematocrit 40.7 % Mean Corpuscular Volume 94.1 FL Mean Corpuscular Hemoglobin 31.8 PG Mean Corpuscular Hemoglobin Concent 33.8 % Red Cell Distribution Width 13.0 % Platelet Count 207 TH/MM3 Mean Platelet Volume 9.2 FL Neutrophils (%) (Auto) 48.8 % Lymphocytes (%) (Auto) 37.7 % Monocytes (%) (Auto) 9.6 % Eosinophils (%) (Auto) 3.2 % Basophils (%) (Auto) 0.7 % Neutrophils # (Auto) 2.6 TH/MM3 Lymphocytes # (Auto) 2.0 TH/MM3 Monocytes # (Auto) 0.5 TH/MM3 Eosinophils # (Auto) 0.2 TH/MM3 Basophils # (Auto) 0.0 TH/MM3 CBC Comment DIFF FINAL Differential Comment Blood Urea Nitrogen 12 MG/DL Creatinine 0.81 MG/DL Random Glucose 96 MG/DL Total Protein 6.6 GM/DL Albumin 3.4 GM/DL Calcium Level 8.8 MG/DL Alkaline Phosphatase 66 U/L Aspartate Amino Transf (AST/SGOT) 23 U/L Alanine Aminotransferase (ALT/SGPT) 38 U/L Total Bilirubin 0.5 MG/DL Sodium Level 144 MEQ/L Potassium Level 3.8 MEQ/L Chloride Level 110 MEQ/L Carbon Dioxide Level 25.4 MEQ/L Anion Gap 9 MEQ/L Estimat Glomerular Filtration Rate 96 ML/MIN Vitals/IOs Vital Signs Date Time Temp Pulse Resp B/P (MAP) Pulse Ox O2 Delivery O2 Flow Rate FiO2 08/18/17 00:00 61 16 119/71 (87) 97 08/17/17 16:58 97.6 Assessment & Plan Problem List: (1) Mervat ICD Codes: F30.9 - Manic episode, unspecified Status: Acute (2) Alcohol use ICD Codes: Z78.9 - Other specified health status Assessment & Plan Patient noted with continued improvement of symptoms and tolerable with recent increase with quetiapine. Recommend continue current dose as patient noted with improvement with titration as needed for mood stabilization. Sleep improved despite having been woken up by staff. Continue to monitor for orthostatic hypotension. Continue to monitor mood and behavior. Patient agrees with plan to transition to chemical dependency rehab program upon discharge. Continue recommendations as per primary medical team. Will continue to follow. Justification for Cont. Inpt. At risk for further decompensation at lower level of care. Joshua Darby MD August 18, 2017 09:45
[2017-08-18 12:40] VITALS: BP 128/80; PULSE 57; RESP 16; TEMP 96; O2SAT 97
--- NOTE | 2017-08-18 14:01 | HHI.PR ---
Subjective Remarks Pt's friend Dr. Calzada was again able to visit with Dr. Chacon during my rounds. Pt had NO new medical complaints. Objective Vitals Vital Signs Date Time Temp Pulse Resp B/P (MAP) Pulse Ox O2 Delivery O2 Flow Rate FiO2 08/18/17 08:00 97.5 52 20 124/76 (92) 99 08/18/17 00:00 61 16 119/71 (87) 97 08/17/17 16:58 97.6 66 22 120/84 (96) 98 Result Diagram: 08/18/1741508/18/17415 Imaging Last Impressions Neck Magnetic Resonance Angiography 08/12/171744 Signed Impressions: Service Date/Time: Saturday, August 12, 2017 18:00 - CONCLUSION: 1. Minimal focal stenosis involving the right proximal internal carotid artery. 2. Moderate focal stenosis involving the right proximal external carotid artery. 3. No significant stenosis or occlusion of the left carotid system. Eliezer Navarro MD Head Magnetic Resonance Angiography 08/12/171744 Signed Impressions: Service Date/Time: Saturday, August 12, 2017 18:00 - CONCLUSION: 1. Patent bilateral posterior communicating arteries. 2. No significant stenosis, occlusion or aneurysm formation. Eliezer Navarro MD Brain MRI 08/12/171741 Signed Impressions: Service Date/Time: Saturday, August 12, 2017 18:00 - CONCLUSION: 1. Very minimal scattered periventricular and subcortical white matter small vessel ischemic changes. 2. No acute infarct or acute hemorrhage, midline shift, extra-axial fluid collection or abnormal enhancing mass lesion. Eliezer Navarro MD Head CT 08/12/171720 Signed Impressions: Service Date/Time: Saturday, August 12, 2017 17:51 - CONCLUSION: Loss of waldrop matter-white matter differentiation in the right frontal region indicating possible acute infarct. No evidence of hemorrhage. Everett Valentine MD Objective Remarks GENERAL: This is a well-nourished, well-developed patient, in no apparent distress. CARDIOVASCULAR: Regular rate and rhythm without murmurs, gallops, or rubs. RESPIRATORY: Clear to auscultation. Breath sounds equal bilaterally. No wheezes , rales, or rhonchi. GASTROINTESTINAL: Abdomen soft, non-tender, nondistended. Normal active bowel sounds MUSCULOSKELETAL: Extremities without clubbing, cyanosis, or edema. NEURO: Alert & Oriented x4 to person, place, time, situation. Moves all ext x4 A/P Problem List: (1) Rochelle ICD Codes: F30.9 - Manic episode, unspecified Status: Acute Plan: - likely d/t underlying biopolar disorder - Case d/w Dr. Almonte (08/14) - Pt has been tolerating seroquel - Case d/w covering Psychiatrist, Dr. Darby (08/18/17) - continue seroquel 100mg in AM and increase PM seroquel to 300mg hs. Will continue current dosing for today. - anticipate that pt may require additional 3-4 days of hospitalization to appropriately titrate his seroquel - Pt wants to go to an inpatient alcohol treatment program following this hospitalization in either [place] or the [facility] in order to be close to family - Discharge planning d/w [facility] Case Mgmt (08/15) - see above - case d/w Dr. Chacon and friend Dr. Calzada at the bedside. - All questions answered to the best of my ability. (2) Alcohol dependence ICD Codes: F10.20 - Alcohol dependence, uncomplicated Status: Acute Plan: - Pt brought to ED with severe agitation, pressured speech, flight of ideas, no sleep in 56 hrs and certainly might be experiencing rochelle. - Pt was from his significant other on June 25 which seems to have precipitated his mood d/o. - Pt suffers from etoh dependence and may have had etoh related seizures in the past and possibly the day prior to admission. - Pt flew in from [place] to [facility] and brought to ED by friends. Pt admits to [address] here[address] - Pt will only admit to 2 etoh drinks on average per day but sources close to him say it could be more like 6-8drinks at least. - Pt currently has etoh in his system and is not currenty in etoh w/d and I see no evidence for hepatic encephalopathy. His current sx's seem to be related to his mood d/o, but he is at significant - MRI brain (08/13/17) --> No acute findings - MRA brain (08/13/17) --> NO acute findings - MRA neck (08/13/17) --> no hemodynamically significant stenosis - EEG (08/13/17) --> NO seizure activity - TSH, B12 --> WNL - RPR --> Non-reactive - Pt likely has both etoh dependence and Bipolar Disorder. Currently manic. - Case reviewed with pt's outpatient Psychiatrist, Dr. Gautam (08/17/17) - Case reviewed with Neurology, Dr. Oconnor, (08/13/17). - Case d/w Dr. Almonte (08/15/17) - decrease librium to 25mg hs - ativan per [facility] protocol - thiamin, folate, MVI - DVT prophylaxis - supportive care - will continue to observe pt on medical floor. (3) HTN (hypertension) ICD Codes: I10 - Essential (primary) hypertension Status: Chronic Plan: - pt is trending normotensive/hypotensive - stop lisinopril - prn PO Catapres. (4) Hyperlipidemia ICD Codes: E78.5 - Hyperlipidemia, unspecified Status: Chronic Plan: - per pt request, decrease lipitor to 20mg hs - Pt can f/u with his PCP, Dr. Herr, outpt regarding his cholesterol mgmt Problem Qualifiers (1) Alcohol dependence: Qualified Codes: F10.29 - Alcohol dependence with unspecified alcohol-induced disorder (2) HTN (hypertension): Qualified Codes: I10 - Essential (primary) hypertension (3) Hyperlipidemia: Qualified Codes: E78.5 - Hyperlipidemia, unspecified Tito Dunn DO August 18, 2017 14:00
[2017-08-18 20:00] VITALS: BP 133/92; PULSE 66; RESP 18; TEMP 97.6; O2SAT 98
[2017-08-18] MEDS ORDERED: chlordiazePOXIDE 25 MG CAP PO SCH (21:00)
[2017-08-18] MEDS: QUEtiapine FUMARATE 200 MG TAB PO SCH (22:06)
[2017-08-18] MEDS: ATORVASTATIN 20 MG TAB PO SCH (22:06)
[2017-08-19] MEDS: ASPIRIN 81 MG CHEW TAB CHEW SCH (08:52)
[2017-08-19] MEDS: QUEtiapine FUMARATE 100 MG TAB PO SCH (08:52)
[2017-08-19] MEDS: levETIRAcetam 500 MG TAB PO SCH ×2 (08:52→22:04)
[2017-08-19] MEDS: THIAMINE HCL 100 MG TAB PO SCH (08:52)
[2017-08-19] MEDS: MULTIVITAMIN TAB PO SCH (08:52)
[2017-08-19] MEDS: LISINOPRIL 20 MG TAB PO SCH (08:52)
[2017-08-19 08:54] VITALS: BP 104/62; PULSE 58; RESP 20; TEMP 97.6; O2SAT 98
[2017-08-19 12:12] VITALS: BP 114/75; PULSE 68; RESP 18; TEMP 97.2; O2SAT 99
--- NOTE | 2017-08-19 13:53 | HHI.PR ---
Subjective Remarks Pt a bit sedated at my visit this afternoon. Pt interviewed and examined together with his friend Dr. Gautam. Objective Vitals Vital Signs Date Time Temp Pulse Resp B/P (MAP) Pulse Ox O2 Delivery O2 Flow Rate FiO2 08/19/17 12:12 97.2 68 18 114/75 (88) 99 08/19/17 08:54 97.6 58 20 104/62 (76) 98 08/18/17 20:00 97.6 66 18 133/92 (106) 98 Result Diagram: 08/18/1741508/18/17415 Imaging Last Impressions Neck Magnetic Resonance Angiography 08/12/171744 Signed Impressions: Service Date/Time: Saturday, August 12, 2017 18:00 - CONCLUSION: 1. Minimal focal stenosis involving the right proximal internal carotid artery. 2. Moderate focal stenosis involving the right proximal external carotid artery. 3. No significant stenosis or occlusion of the left carotid system. Eliezer Navarro MD Head Magnetic Resonance Angiography 08/12/171744 Signed Impressions: Service Date/Time: Saturday, August 12, 2017 18:00 - CONCLUSION: 1. Patent bilateral posterior communicating arteries. 2. No significant stenosis, occlusion or aneurysm formation. Eliezer Navarro MD Brain MRI 08/12/171741 Signed Impressions: Service Date/Time: Saturday, August 12, 2017 18:00 - CONCLUSION: 1. Very minimal scattered periventricular and subcortical white matter small vessel ischemic changes. 2. No acute infarct or acute hemorrhage, midline shift, extra-axial fluid collection or abnormal enhancing mass lesion. Eliezer Navarro MD Head CT 08/12/171720 Signed Impressions: Service Date/Time: Saturday, August 12, 2017 17:51 - CONCLUSION: Loss of waldrop matter-white matter differentiation in the right frontal region indicating possible acute infarct. No evidence of hemorrhage. Everett Valentine MD Objective Remarks GENERAL: This is a well-nourished, well-developed patient, in no apparent distress. CARDIOVASCULAR: Regular rate and rhythm without murmurs, gallops, or rubs. RESPIRATORY: Clear to auscultation. Breath sounds equal bilaterally. No wheezes , rales, or rhonchi. GASTROINTESTINAL: Abdomen soft, non-tender, nondistended. Normal active bowel sounds MUSCULOSKELETAL: Extremities without clubbing, cyanosis, or edema. NEURO: Alert & Oriented x4 to person, place, time, situation. Moves all ext x4 A/P Problem List: (1) Rochelle ICD Codes: F30.9 - Manic episode, unspecified Status: Acute Plan: - likely d/t underlying biopolar disorder - Case d/w Dr. Almonte (08/14) - Pt has been tolerating seroquel - Case d/w covering Psychiatrist, Dr. Darby (08/18/17) - some sedation today (08/19) - stop all scheduled librium - stop AM dose of seroquel - consider increasing evening dose of seroquel tomorrow (08/20) from 300mg hs to 400mg hs - anticipate that pt may require additional 3-4 days of hospitalization to appropriately titrate his seroquel - Pt wants to go to an inpatient alcohol treatment program following this hospitalization in either [place] or the [facility] in order to be close to family - Discharge planning d/w [facility] Case Mgmt (08/15) - see above - case d/w Dr. Chacon and friend Dr. Gautam at the bedside. - All questions answered to the best of my ability. (2) Alcohol dependence ICD Codes: F10.20 - Alcohol dependence, uncomplicated Status: Acute Plan: - Pt brought to ED with severe agitation, pressured speech, flight of ideas, no sleep in 56 hrs and certainly might be experiencing rochelle. - Pt was from his significant other on June 25 which seems to have precipitated his mood d/o. - Pt suffers from etoh dependence and may have had etoh related seizures in the past and possibly the day prior to admission. - Pt flew in from [place] to [facility] and brought to ED by friends. Pt admits to [address] here[address] - Pt will only admit to 2 etoh drinks on average per day but sources close to him say it could be more like 6-8drinks at least. - Pt currently has etoh in his system and is not currenty in etoh w/d and I see no evidence for hepatic encephalopathy. His current sx's seem to be related to his mood d/o, but he is at significant - MRI brain (08/13/17) --> No acute findings - MRA brain (08/13/17) --> NO acute findings - MRA neck (08/13/17) --> no hemodynamically significant stenosis - EEG (08/13/17) --> NO seizure activity - TSH, B12 --> WNL - RPR --> Non-reactive - Pt likely has both etoh dependence and Bipolar Disorder. Currently manic. - Case reviewed with pt's outpatient Psychiatrist, Dr. Gautam (08/17/17) - Case reviewed with Neurology, Dr. Oconnor, (08/13/17). - Case d/w Dr. Almonte (08/15/17) - stop librium - ativan per [facility] protocol - thiamin, folate, MVI - DVT prophylaxis - supportive care - will continue to observe pt on medical floor. (3) HTN (hypertension) ICD Codes: I10 - Essential (primary) hypertension Status: Chronic Plan: - pt is trending normotensive/hypotensive - stop lisinopril - prn PO Catapres. (4) Hyperlipidemia ICD Codes: E78.5 - Hyperlipidemia, unspecified Status: Chronic Plan: - per pt request, decrease lipitor to 20mg hs - Pt can f/u with his PCP, Dr. Herr, outpt regarding his cholesterol mgmt Problem Qualifiers (1) Alcohol dependence: Qualified Codes: F10.29 - Alcohol dependence with unspecified alcohol-induced disorder (2) HTN (hypertension): Qualified Codes: I10 - Essential (primary) hypertension (3) Hyperlipidemia: Qualified Codes: E78.5 - Hyperlipidemia, unspecified Tito Dunn DO August 19, 2017 13:53
--- NOTE | 2017-08-19 14:39 | HHI.PYPN ---
Subjective Remarks Patient seen for follow, chart reviewed. Discussion nursing staff reported the patient compliant with treatment, slept well, mood has been good. Patient was found sitting in hospital chair noted B, cooperative. Patient states that he was feeling somewhat sedated in the morning and was wanting to have dose provided earlier in the evening to adjust length of time of sedation that carries over to the morning. Patient also aware that he is currently taking chlordiazepoxide in the evening as well which will be discontinued this evening. Patient reports having slept better last evening, mood has been " happy on moving on", denying any perceptual disturbances, delusions or significant side effect aside from dry mouth. Patient states he plans on going to a substance abuse rehabilitation program called [facility] in [place]. Time was spent reviewing side effects from medication which patient acknowledged. Patient continued to be noted to have some pressured speech but less intense, some loosening of associations and circumstantial at times, but able to maintain appropriate relevance and responses to questioning and appropriate affect during interview. Review of Systems Except as stated in HPI: all other systems reviewed are Neg Mental Status Examination Appearance: Appropriate Consciousness: Alert Orientation: x4 Motor Activity: Normal gait, Other (No hand tremor, no cogwheeling, no dystonia , no dyskinesia, no other motor abnormalities noted. No signs of withdrawal noted.) Speech: Pressured (Slightly), Other (Less pressured today.) Language: Adequate Fund of Knowledge: Adequate Attention and Concentration: Easily Distracted (Less so today) Memory: Unremarkable Mood: Appropriate Affect: Appropriate Thought Process & Associations: Loose associations (Some), Circumstantial, Tangential (At times) Thought Content: Appropriate Hallucination Type: None Delusion Type: None Suicidal Ideation: No Suicidal Plan: No Suicidal Intention: No Homicidal Ideation: No Homicidal Plan: No Homicidal Intention: No Insight: Fair Judgment: Impulsive Results Vitals/IOs Vital Signs Date Time Temp Pulse Resp B/P (MAP) Pulse Ox O2 Delivery O2 Flow Rate FiO2 08/19/17 12:12 97.2 68 18 114/75 (88) 99 Assessment & Plan Problem List: (1) Mervat ICD Codes: F30.9 - Manic episode, unspecified Status: Acute (2) Alcohol use ICD Codes: Z78.9 - Other specified health status Assessment & Plan Patient this time appears to be responding to current treatment, continues to have some pressured speech although less intense, some loosening associations and tangentiality. We will continue current dose for now will continue monitor for orthostatic hypotension and sedation which likely compounded by Librium which will be discontinued soon. If patient is able to tolerate current dose after Librium has been discontinued can consider increasing quetiapine for continued stabilization. We will continue to monitor mood and behavior. Continue recommendations as her prior medical team. Case discussed with Dr. Dunn. Patient will be continued to be followed by Dr. Almonte. Justification for Cont. Inpt. At risk of further decompensation at lower level of care. Joshua Darby MD August 19, 2017 14:39
[2017-08-19 16:10] VITALS: BP 129/80; PULSE 66; RESP 18; TEMP 97.7; O2SAT 99
[2017-08-19 21:59] VITALS: BP 128/82; PULSE 60; RESP 18; TEMP 98.3; O2SAT 93
[2017-08-19] MEDS: QUEtiapine FUMARATE 200 MG TAB PO SCH (22:04)
[2017-08-19] MEDS: ATORVASTATIN 20 MG TAB PO SCH (22:04)
[2017-08-20 08:00] VITALS: BP 118/56; PULSE 56; RESP 19; TEMP 98.2; O2SAT 95
[2017-08-20] MEDS: levETIRAcetam 500 MG TAB PO SCH ×2 (08:21→22:22)
[2017-08-20] MEDS: MULTIVITAMIN TAB PO SCH (08:21)
[2017-08-20] MEDS: THIAMINE HCL 100 MG TAB PO SCH (08:21)
[2017-08-20] MEDS: ASPIRIN 81 MG CHEW TAB CHEW SCH (08:21)
[2017-08-20 12:00] VITALS: BP 129/82; PULSE 63; RESP 18; TEMP 97.7; O2SAT 98
--- NOTE | 2017-08-20 13:47 | HHI.PYPN ---
Subjective Remarks Patient seen and examined. Chart reviewed. I note daytime dose of Seroquel has been discontinued, and patient is receiving Seroquel 300mg qHS. Case discussed with Dr. Torres as well as with Dr. Darby who followed patient in consultation through the weekend. On my exam today, patient remains a little hyperverbal with some ongoing circumstantiality of thought process and mild loosening of associations. He denies any SI/HI. Denies AVH. No delusions elicited. He is excited about going to a [facility] rehab facility in [place] near his brother and says that he can enter into that program as early as of this week. Denies side effects from Seroquel besides some dry mouth, and he is drinking ample fluids to counteract this. He did find the daytime dose of Seroquel intolerably sedating and would like to continue with this agent dosed only at HS. I did discuss with him other options for mood stabilization, but he would like to stick with Seroquel monotherapy. Review of Systems Except as stated in HPI: all other systems reviewed are Neg Mental Status Examination Appearance: Appropriate Consciousness: Alert Orientation: x4 Motor Activity: Normal gait, Other (No motor abnormalities noted. No withdrawal signs noted.) Speech: Rapid (Mild), Other (Less pressured today.) Language: Adequate Fund of Knowledge: Adequate Attention and Concentration: Other (Focus and concentration are improving) Memory: Unremarkable Mood: Appropriate Affect: Appropriate Thought Process & Associations: Loose associations (Very mild), Circumstantial Thought Content: Appropriate Hallucination Type: None Delusion Type: None Suicidal Ideation: No Suicidal Plan: No Suicidal Intention: No Homicidal Ideation: No Homicidal Plan: No Homicidal Intention: No Insight: Fair Judgment: Impulsive Results Labs Labs reviewed Vitals/IOs Vital Signs Date Time Temp Pulse Resp B/P (MAP) Pulse Ox O2 Delivery O2 Flow Rate FiO2 08/20/17 12:00 97.7 63 18 129/82 (98) 98 Assessment & Plan Problem List: (1) Mervat ICD Codes: F30.9 - Manic episode, unspecified Status: Acute (2) Alcohol use ICD Codes: Z78.9 - Other specified health status Assessment & Plan Titrate HS dose of Seroquel to 400mg for additional mood stabilization. To consider switching this to Seroquel XR (not on formulary here) on discharge for more even coverage throughout the day. Patient has been medically cleared and is agreeable to going to medical psychiatric unit for further psychiatric stabilization prior to transfer to [facility] facility. I did remind him that the unit will be locked, and we did discuss the conditions of voluntary psychiatric hospitalization. Case d/w Dr. Torres. I spent >25 min at the bedside with patient and in care coordination with other providers. Additional time was spent in chart review and documentation. Justification for Cont. Inpt. . Discharge Planning To Med Psych today. D/w psych gas charger, who will hold a bed for pt on Med psych, as well as dept manager legal, who will have pt sign voluntary. Dick Almonte MD August 20, 2017 13:47
[2017-08-20] MEDS ORDERED: QUET1TAB9 PO (14:57)
[2017-08-20] MEDS ORDERED: LEVE500 PO (14:57)
--- NOTE | 2017-08-20 14:57 | HHI.DCPOC ---
Discharge Care Plan Diagnosis: (1) Alcohol dependence (2) Seizure (3) Mervat (4) HTN (hypertension) (5) Hyperlipidemia Goals to Promote Your Health * To prevent worsening of your condition and complications * To maintain your health at the optimal level Directions to Meet Your Goals Take your medications as prescribed Follow your dietary instruction Follow activity as directed Keep your appointments as scheduled Take your immunizations and boosters as scheduled If your symptoms worsen call your PCP, if no PCP go to Urgent Care Center or Emergency Room Smoking is Dangerous to Your Health. Avoid second hand smoke Call the 24-hour hour crisis hotline for domestic abuse at Steven Torres MD August 20, 2017 14:57
[2017-08-20 16:00] VITALS: BP 122/66; PULSE 60; RESP 17; TEMP 98; O2SAT 96
[2017-08-20 20:30] VITALS: BP 148/98; PULSE 70; RESP 16; TEMP 98; O2SAT 97
--- NOTE | 2017-08-20 21:20 | HHI.PR ---
Subjective Remarks pt very pleasant. very eager to start his recovery in rehab center in [place] Objective Vitals heent neg heart reg lung cta abd /snt ext no edema Vital Signs Date Time Temp Pulse Resp B/P (MAP) Pulse Ox O2 Delivery O2 Flow Rate FiO2 08/20/17 16:00 98.0 60 17 122/66 (84) 96 08/20/17 12:00 97.7 63 18 129/82 (98) 98 08/20/17 08:00 98.2 56 19 118/56 (76) 95 08/19/17 21:59 98.3 60 18 128/82 (97) 93 08/20/17 08/20/17 08/21/17 15:00 23:00 07:00 Intake Total 1080 ml Balance 1080 ml Intake Oral 1080 ml # Voids 4 # Bowel Movements 1 Result Diagram: 08/18/1741508/18/17415 Imaging Last Impressions Neck Magnetic Resonance Angiography 08/12/171744 Signed Impressions: Service Date/Time: Saturday, August 12, 2017 18:00 - CONCLUSION: 1. Minimal focal stenosis involving the right proximal internal carotid artery. 2. Moderate focal stenosis involving the right proximal external carotid artery. 3. No significant stenosis or occlusion of the left carotid system. Eliezer Navarro MD Head Magnetic Resonance Angiography 08/12/171744 Signed Impressions: Service Date/Time: Saturday, August 12, 2017 18:00 - CONCLUSION: 1. Patent bilateral posterior communicating arteries. 2. No significant stenosis, occlusion or aneurysm formation. Eliezer Navarro MD Brain MRI 08/12/171741 Signed Impressions: Service Date/Time: Saturday, August 12, 2017 18:00 - CONCLUSION: 1. Very minimal scattered periventricular and subcortical white matter small vessel ischemic changes. 2. No acute infarct or acute hemorrhage, midline shift, extra-axial fluid collection or abnormal enhancing mass lesion. Eliezer Navarro MD Head CT 08/12/171720 Signed Impressions: Service Date/Time: Saturday, August 12, 2017 17:51 - CONCLUSION: Loss of waldrop matter-white matter differentiation in the right frontal region indicating possible acute infarct. No evidence of hemorrhage. Everett Valentine MD A/P Problem List: (1) Rochelle ICD Codes: F30.9 - Manic episode, unspecified Status: Acute Plan: bipolar d/o. pt presented with rochelle after stressful events. improving etoh overuse and dependence. no sign of etoh w/d- discussed with pt his friend at bedside; Also both his inpatient/outpatient psychiatrists Dr Gautam and Dr Almonte. Pt also requested I update his brother Sergio and also his friend Dr Calzada. Psychiatry titrating his seroquel. Pt will be discharged on Sunday and I have communicated with Sergio who will fly in from [place] tomorrow and arrive late on Sunday. I will prepare his d /c documents tomorrow so he can leave Sunday and get his scripts filled. Pt is not interested in going to psychiatry inpatient unit here. His psychiatrist is not supportive of d/c home until family support arrives. He will be enrolled into rehab program in [place] (2) Alcohol dependence ICD Codes: F10.20 - Alcohol dependence, uncomplicated Status: Acute Plan: - Pt brought to ED with severe agitation, pressured speech, flight of ideas, no sleep in 56 hrs and certainly might be experiencing rochelle. - Pt was from his significant other on June 25 which seems to have precipitated his mood d/o. - Pt suffers from etoh dependence and may have had etoh related seizures in the past and possibly the day prior to admission. - Pt flew in from [place] to [facility] and brought to ED by friends. Pt admits to [address] here. - Pt will only admit to 2 etoh drinks on average per day but sources close to him say it could be more like 6-8drinks at least. - Pt currently has etoh in his system and is not currenty in etoh w/d and I see no evidence for hepatic encephalopathy. His current sx's seem to be related to his mood d/o, but he is at significant - MRI brain (08/13/17) --> No acute findings - MRA brain (08/13/17) --> NO acute findings - MRA neck (08/13/17) --> no hemodynamically significant stenosis - EEG (08/13/17) --> NO seizure activity - TSH, B12 --> WNL - RPR --> Non-reactive - (3) HTN (hypertension) ICD Codes: I10 - Essential (primary) hypertension Status: Chronic Plan: -pt bp meds on hold. normotensive (4) Hyperlipidemia ICD Codes: E78.5 - Hyperlipidemia, unspecified Status: Chronic Plan: - per pt request, decrease lipitor to 20mg hs - Pt can f/u with his PCP, Dr. Herr, outpt regarding his cholesterol mgmt Problem Qualifiers (1) Alcohol dependence: Qualified Codes: F10.29 - Alcohol dependence with unspecified alcohol-induced disorder (2) HTN (hypertension): Qualified Codes: I10 - Essential (primary) hypertension (3) Hyperlipidemia: Qualified Codes: E78.5 - Hyperlipidemia, unspecified Stveen Torres MD August 20, 2017 21:20
[2017-08-20] MEDS: QUEtiapine FUMARATE 200 MG TAB PO SCH (22:22)
[2017-08-20] MEDS: ATORVASTATIN 20 MG TAB PO SCH (22:22)
--- NOTE | 2017-08-21 07:54 | HHI.PYPN ---
Subjective Remarks Patient seen and examined. Chart reviewed. Case discussed with Dr. Torres. Patient declined transfer to inpatient psychiatry yesterday following our meeting and so was retained on the medical unit overnight. On my examination today, patient tells me that he declined transfer because he did not want to give up his cell phone and laptop (as is required by unit protocol) and because he did not want to be "around a bunch of crazies." He feels improved with titration of Seroquel dose. Mood is much more stable versus admission. He denies any suicidal or homicidal ideation, intent or plan. He denies any racing thoughts. He does complain of some mild distractibility. He notes that he had some difficulty falling asleep last night but also relates that he received a call from his ex-fiancee last night that caused him some transient distress, likely explaining the sleep disturbance. He does not plan to converse with her going forward and notes that she called using a friend's number so he did not recognize it. I can elicit no other hypomanic/manic symptoms. I can elicit no depressive symptoms. He denies any audiovisual hallucinations. I can elicit no delusional material. There is no evidence of any impairment in reality construction. He denies any side effects from the Seroquel besides some mild dry mouth. He would like to switch to the XR formulation on discharge as per our previous discussions. He has no physical complaints. He remains enthusiastic about going to residential chemical dependency treatment program in [place] and requests that I speak with the attending psychiatrist there, Dr. Hamilton, regarding the patient's case (FAITH completed). Spoke with Dr. Hamilton. We review the circumstances of patient's presentation here, his history as I understand it, and his progress during this hospitalization. I spent ~18min in telephone consultation with Dr. Hamilton. Review of Systems Except as stated in HPI: all other systems reviewed are Neg Mental Status Examination Appearance: Appropriate Consciousness: Alert Orientation: x4 Motor Activity: Normal gait, Other (No abnormal motor movements noted. No signs of any withdrawal noted.) Speech: Unremarkable Language: Adequate Fund of Knowledge: Adequate Attention and Concentration: Other (Focus and concentration continue to improve ) Memory: Unremarkable Mood: Appropriate Affect: Appropriate Thought Process & Associations: Circumstantial Thought Content: Appropriate Hallucination Type: None Delusion Type: None Suicidal Ideation: No Suicidal Plan: No Suicidal Intention: No Homicidal Ideation: No Homicidal Plan: No Homicidal Intention: No Mental Status Exam Remarks Insight and judgment are perhaps fair Results Labs Labs reviewed Vitals/IOs Vital Signs Date Time Temp Pulse Resp B/P (MAP) Pulse Ox O2 Delivery O2 Flow Rate FiO2 08/20/17 20:30 98.0 70 16 148/98 (115) 97 Intake and Output 08/21/17 08/21/17 08/22/17 08:00 16:00 00:00 Intake Total 800 ml Balance 800 ml Assessment & Plan Problem List: (1) Bipolar I disorder, most recent episode manic, in partial remission ICD Codes: F31.73 - Bipolar disorder, in partial remission, most recent episode manic (2) Alcohol use ICD Codes: Z78.9 - Other specified health status Assessment & Plan Patient continues to improve with Seroquel. His presenting manic episode appears to be in partial remission, well on the way to full remission. I have adjusted the diagnostic schema to reflect my strong clinical suspicion that the patient does indeed suffer from an underlying bipolar disorder, most recent episode manic now in partial remission. I think it is appropriate at this juncture to transition patient to residential chemical dependency treatment as planned. I recommend discharging the patient on Seroquel XR 400mg qHS, and I have written a prescription for this. Patient should continue to follow with Dr. Gautam once he completes his treatment at [facility], and I have instructed patient not to resume his medical practice until he is cleared by outpatient provider. I have supported the patient in his desire for abstinence from substances of abuse. I have counseled the patient regarding warning signs for need to return to the psychiatric emergency room as part of a general safety plan. Suicide and violence risk assessment both suggest lower imminent risk at this point, and the patient's level of function appears to be adequate for planned level of outpatient care. The patient does not require inpatient psychiatric hospitalization at this time and is psychiatrically cleared for discharge into brother's care with plan to enter into residential chemical dependency treatment later in the week. Thank you very much for this consultation. Please call or page with questions. I spent ~30min at the patient's bedside, consulted with Dr. Hamilton as noted above, and spent additional time discussing the case with Dr. Torres and in chart review and documentation. Justification for Cont. Inpt. . Dick Almonte MD August 21, 2017 07:54
[2017-08-21 08:00] VITALS: BP 115/83; PULSE 74; RESP 20; TEMP 97.4; O2SAT 97
[2017-08-21] MEDS: ASPIRIN 81 MG CHEW TAB CHEW SCH (08:41)
[2017-08-21] MEDS: levETIRAcetam 500 MG TAB PO SCH ×2 (08:41→22:09)
[2017-08-21] MEDS: MULTIVITAMIN TAB PO SCH (08:41)
[2017-08-21] MEDS: THIAMINE HCL 100 MG TAB PO SCH (08:42)
--- NOTE | 2017-08-21 11:55 | HHI.PR ---
Subjective Remarks doing great. eager for d/c in AM doing ok with seroquel dose Objective Vitals heart reg lung cta abd s/nt ext no edema Vital Signs Date Time Temp Pulse Resp B/P (MAP) Pulse Ox O2 Delivery O2 Flow Rate FiO2 08/21/17 08:00 97.4 74 20 115/83 (94) 97 08/20/17 20:30 98.0 70 16 148/98 (115) 97 08/20/17 16:00 98.0 60 17 122/66 (84) 96 08/20/17 12:00 97.7 63 18 129/82 (98) 98 Result Diagram: 08/18/1741508/18/17415 Imaging Last Impressions Neck Magnetic Resonance Angiography 08/12/171744 Signed Impressions: Service Date/Time: Saturday, August 12, 2017 18:00 - CONCLUSION: 1. Minimal focal stenosis involving the right proximal internal carotid artery. 2. Moderate focal stenosis involving the right proximal external carotid artery. 3. No significant stenosis or occlusion of the left carotid system. Eliezer Navarro MD Head Magnetic Resonance Angiography 08/12/171744 Signed Impressions: Service Date/Time: Saturday, August 12, 2017 18:00 - CONCLUSION: 1. Patent bilateral posterior communicating arteries. 2. No significant stenosis, occlusion or aneurysm formation. Eliezer Navarro MD Brain MRI 08/12/171741 Signed Impressions: Service Date/Time: Saturday, August 12, 2017 18:00 - CONCLUSION: 1. Very minimal scattered periventricular and subcortical white matter small vessel ischemic changes. 2. No acute infarct or acute hemorrhage, midline shift, extra-axial fluid collection or abnormal enhancing mass lesion. Eliezer Navarro MD Head CT 08/12/171720 Signed Impressions: Service Date/Time: Saturday, August 12, 2017 17:51 - CONCLUSION: Loss of waldrop matter-white matter differentiation in the right frontal region indicating possible acute infarct. No evidence of hemorrhage. Everett Valentine MD A/P Problem List: (1) Rochelle ICD Codes: F30.9 - Manic episode, unspecified Status: Acute Plan: bipolar d/o. pt presented with rochelle after stressful events. improving etoh overuse and dependence. no sign of etoh w/d- discussed with pt his friend at bedside; Also both his inpatient/outpatient psychiatrists Dr Gautam and Dr Almonte. Pt also requested I update his brother Sergio and also his friend Dr Calzada. Psychiatry titrating his seroquel. Sergio arriving to nut picker brother. I will have d/c orders for tomorrow AM discussed with psychiatry who will communicate with [place] [facility] Pt is doing very well and has positive outlook on his recovery. (2) Alcohol dependence ICD Codes: F10.20 - Alcohol dependence, uncomplicated Status: Acute Plan: - Pt brought to ED with severe agitation, pressured speech, flight of ideas, no sleep in 56 hrs and certainly might be experiencing rochelle. - Pt was from his significant other on June 25 which seems to have precipitated his mood d/o. - Pt suffers from etoh dependence and may have had etoh related seizures in the past and possibly the day prior to admission. - Pt flew in from [place] to [facility] and brought to ED by friends. Pt admits to [address] here[address] - Pt will only admit to 2 etoh drinks on average per day but sources close to him say it could be more like 6-8drinks at least. - Pt currently has etoh in his system and is not currenty in etoh w/d and I see no evidence for hepatic encephalopathy. His current sx's seem to be related to his mood d/o, but he is at significant - MRI brain (08/13/17) --> No acute findings - MRA brain (08/13/17) --> NO acute findings - MRA neck (08/13/17) --> no hemodynamically significant stenosis - EEG (08/13/17) --> NO seizure activity - TSH, B12 --> WNL - RPR --> Non-reactive - (3) HTN (hypertension) ICD Codes: I10 - Essential (primary) hypertension Status: Chronic Plan: -pt bp meds on hold. normotensive (4) Hyperlipidemia ICD Codes: E78.5 - Hyperlipidemia, unspecified Status: Chronic Plan: - per pt request, decrease lipitor to 20mg hs - Pt can f/u with his PCP, Dr. Herr, outpt regarding his cholesterol mgmt Problem Qualifiers (1) Alcohol dependence: Qualified Codes: F10.29 - Alcohol dependence with unspecified alcohol-induced disorder (2) HTN (hypertension): Qualified Codes: I10 - Essential (primary) hypertension (3) Hyperlipidemia: Qualified Codes: E78.5 - Hyperlipidemia, unspecified Steven Torres MD August 21, 2017 11:55
[2017-08-21 12:00] VITALS: BP 134/80; PULSE 73; RESP 19; TEMP 97.4; O2SAT 98
[2017-08-21] MEDS ORDERED: QUET400XR PO (12:25)
[2017-08-21 16:00] VITALS: BP 126/80; PULSE 72; RESP 19; TEMP 97.3; O2SAT 98
[2017-08-21 21:00] VITALS: BP 133/92; PULSE 76; RESP 16; TEMP 98.7; O2SAT 98
[2017-08-21] MEDS: ATORVASTATIN 20 MG TAB PO SCH (22:09)
[2017-08-21] MEDS: QUEtiapine FUMARATE 200 MG TAB PO SCH (22:09)
[2017-08-22 08:00] VITALS: BP 113/70; PULSE 78; RESP 18; TEMP 97.8; O2SAT 96
--- NOTE | 2017-08-22 09:12 | HHI.DS ---
Discharge Summary Admission Date August 12, 2017 at 19:04 Discharge Date: August 22, 2017 Admitting Diagnosis Seizure. Alcohol dependence. 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 Pt had been displaying a pressured speech and agitated behavior. Pt says he thinks that a recent break up from his girlfriend of 7 years on "June 25" is believed to be the trigger for his behavior. He was being seen by [facility] psychiatry and given a script for seroquel to help with sleep. Pt says he does drink "2 etoh" drinks on average per day but wouldn't be more specific ...other than to say he had 3 vodka's today. Pt says he was hospitalized in [facility] and had w/up and told he had seizure and it was probably etoh related. Pt has been in [place] visiting family per his hx tonight. Says "3 nights ago" he was in ED at [facility] in [place] and had to see about 5 levels of trainee doctors before seeing the Attending. He believes he had "5 auras today" which he thinks are sz activity. He drank 3 vodkas and got on a plane to [facility] where his friends and colleagues picked him up and brought him here. Apparently he was using some as needed xanax for his symptoms. He has had elevated liver enzymes with most recent LFT's being drawn on 07/18 which I reviewed. A liver bx in 2014 showed fatty liver and some central/portal fibrosis. He has been given multiple doses of ativan in ED already. Also of note we are informed that he may drink at least 6-8 etoh beverages per day. CBC/BMP: 08/18/176 08/18/17415 Hospital Course (1) Mervat - Pt brought to ED with severe agitation, pressured speech, flight of ideas, no sleep in 56 hrs and certainly might be experiencing mervat. - Pt was from his significant other on June 25 which seems to have precipitated his mood d/o. - Pt suffers from etoh dependence and may have had etoh related seizures in the past and possibly the day prior to admission. - Pt flew in from [place] to [facility] and brought to ED by friends. Pt admits to [address] here[address] - Pt will only admit to 2 etoh drinks on average per day but sources close to him say it could be more like 6-8drinks at least. - Pt currently has etoh in his system and is not currenty in etoh w/d and I see no evidence for hepatic encephalopathy. His current sx's seem to be related to his mood d/o, but he is at significant bipolar d/o. pt presented with mervat after stressful events. improving on seroquel 400mg qhs etoh overuse and dependence. no sign of etoh w/d- he is weaned off librium chronic htn. pt was weaned off hctz and lisinipril during this admission. his bp is normotensive currently. should be monitored and resumed as needed. seizures. his neurologist would like to continue keppra 500mg po bid for now and can be reassessed on f/u once he returns from his Pt going home with his brother today and will enroll into a rehab in [place]. He will f/u with all of his local physicians on return. - MRI brain (08/13/17) --> No acute findings - MRA brain (08/13/17) --> NO acute findings - MRA neck (08/13/17) --> no hemodynamically significant stenosis - EEG (08/13/17) --> NO seizure activity - TSH, B12 --> WNL - RPR --> Non-reactive - ( Pt Condition on Discharge: Stable Discharge Disposition: Discharge Home Discharge Instructions DIET: Follow Instructions for: As Tolerated, No Restrictions Activities you can perform: Regular-No Restrictions New Medications: Quetiapine XR (Seroquel XR) 400 Mg Tab 400 MG PO HS for Mental Health for 15 Days, TAB 1 Refill Levetiracetam (Keppra) 500 Mg Tab 500 MG PO Q12HR for Seizure Control, #60 TAB 3 Refills Continued Medications: Aspirin (Aspirin) 81 Mg Chew 81 MG CHEW DAILY, TAB 0 Refills Atorvastatin (Lipitor) 40 Mg Tab 40 MG PO HS for Cholesterol Management, #30 TAB 0 Refills Discontinued Medications: Alprazolam (Xanax) 0.25 Mg Tab 0.25 MG PO DAILY PRN for anxiety, TAB 0 Refills Hydrochlorothiazide (Hydrochlorothiazide) 25 Mg Tab 25 MG PO DAILY, #30 TAB 0 Refills Lisinopril (Lisinopril) 20 Mg Tab 20 MG PO DAILY, #30 TAB 0 Refills Quetiapine (Quetiapine) 25 Mg Tab 25 MG PO DAILY, #30 TAB 0 Refills Zolpidem (Ambien) 10 Mg Tab 10 MG PO HS PRN for INSOMNIA, TAB 0 Refills Steven Torres MD August 22, 2017 09:12
[2017-08-22] MEDS: levETIRAcetam 500 MG TAB PO SCH (11:17)
[2017-08-22] MEDS: MULTIVITAMIN TAB PO SCH (11:17)
[2017-08-22] MEDS: THIAMINE HCL 100 MG TAB PO SCH (11:17)
[2017-08-22] MEDS: ASPIRIN 81 MG CHEW TAB CHEW SCH (11:18)
== END 2017-08-22 11:52 | disposition home or self-care (01) | DRG 897 ==
LOC: NEPE 17:06 → NEDA 19:04 → NEDH 08-13 00:05 → N03B 08-13 04:48 → N05A 08-13 19:39
PROVIDERS: ADMIT Hospitalist; ATTEND Hospitalist
DX: F10.24 Alcohol dependence with alcohol-induced mood disorder (principal); G40.409 Other generalized epilepsy and epileptic syndromes, not intractable, without status epilepticus; I10 Essential (primary) hypertension; F31.73 Bipolar disorder, in partial remission, most recent episode manic; E78.5 Hyperlipidemia, unspecified; F41.9 Anxiety disorder, unspecified; Y90.4 Blood alcohol level of 80-99 mg/100 ml; Z79.82 Long term (current) use of aspirin; Z85.828 Personal history of other malignant neoplasm of skin; Z86.61 Personal history of infections of the central nervous system; Z87.828 Personal history of other (healed) physical injury and trauma
CPT/HCPCS: 70450; 70544; 70548; 70553; 80053; 80307; 81001; 82140; 82607; 82746; 84443; 84484; 85025; 85610; 85730; 86592; 86703; 87641; 93005; 95819; 96365; 96375; A9579; J2060; J3411; J7030